=== PATIENT | female | born 1935 | race Caucasian/White ===

== ENCOUNTER 2018-02-13 16:34 | Outpatient (CLI) | payer MEDICARE, OTHER ==
--- NOTE | 2018-02-14 14:33 | Ultrasound Report ---
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 COMPARISON: None. TECHNIQUE: Real-time sonographic vascular imaging was performed by the dust collector operator through the lower extremity utilizing both color-flow and Doppler spectral analysis. Multiple visitor services representative static images were saved for review. FINDINGS: Common Femoral Vein (CFV): Normal. CFV-GSV Junction: Normal. Profunda Femoral Vein (PFV): Normal. Femoral Vein (FV) Prox: Normal. Femoral Vein (FV) Mid: Normal. Femoral Vein (FV) Dist: Normal. Popliteal Vein: Normal. Posterior Tibial Veins: Normal. Peroneal Veins: Normal. Contralateral Side CFV: Normal. Other: No varicose veins were examined or detected by the dust collector operator. IMPRESSION: No evidence for deep venous thrombosis. RADIA
== END 2018-02-13 16:35 | disposition home or self-care (01) ==
LOC: DI 16:34
PROVIDERS: ATTEND Physician Assistant
DX: I83.812 Varicose veins of left lower extremity with pain (principal)

== ENCOUNTER 2020-04-30 08:57 | Outpatient (CLI) | payer MEDICARE, OTHER | END 2020-04-30 08:58 | disposition home or self-care (01) | LOC: DI 08:57 | PROVIDERS: ATTEND Nurse Practitioner Family | DX: R07.9 Chest pain, unspecified (principal); I08.0 Rheumatic disorders of both mitral and aortic valves | CPT/HCPCS: 93306 ==

== ENCOUNTER 2020-05-08 07:46 | Outpatient (CLI) | payer MEDICARE, OTHER ==
--- NOTE | 2020-05-08 11:13 | CARDIAC PROCEDURE NOTE ---
DATE OF SERVICE: 05/08/2020 Physician: Janice Parada MD, [facility] INDICATION: Chest pain. CARDIAC RISK FACTORS 1. Advanced age. 2. Uncontrolled hypertension, is not on treatment. DESCRIPTION OF PROCEDURE: After signing informed consent, the patient underwent a Maik-protocol treadmill stress test. No cardiac imaging was ordered with this test. RESTING HEART RATE: 74. PEAK HEART RATE: 146 (108% predicted maximum heart rate for age). RESTING BLOOD PRESSURE: 159/95. PEAK BLOOD PRESSURE: 170/109. The patient exercised for 2 minutes and 39 seconds on a Maik-protocol treadmill stress test. She achieved a peak heart rate of 146 (108% PMHR) and 4.64 METs. The patient did not develop her "stabbing, flash of chest pain" during exercise. She had mild shortness of breath, but no wheezing. She reported her perceived exertion at 10-12/20 at peak on the Ina scale. During walking the incline, she reported she had more discomfort in her legs, than "any trouble in her chest", and that she "could have gone on". The test was stopped due to achieving heart rate and EKG changes and marked hypertension. Oxygen saturation was 100% on room air and at peak it dropped to 84%. RESTING EKG: Normal sinus rhythm, PAC, marked LVH voltage, diffuse downsloping ST segments with biphasic T waves, which are consistent with strain pattern of LVH. EKG during exercise showed more frequent PACs, occasional PVCs, atrial bigeminy, occasional ventricular couplets. EKG AT PEAK: [address] depressions are seen in the lateral leads. IMPRESSION: 1. Abnormal resting electrocardiogram showing LVH with strain. 2. Increased atrial and ventricular ectopy occurs with exercise. 3. Oxygen desaturation occurs with exercise. 4. Her EKG changes cannot be interpreted as ischemia, since she has a baseline abnormal EKG with ST-T abnormalities. RECOMMENDATIONS: 1. Consider repeating a stress test with cardiac imaging, if indicated, to evaluate for coronary artery disease, since this test was nondiagnostic. 2. Consider a 6-minute walk test, to evaluate for needing home O2. Consider a Pulmonary referral. 3. BP control advised. TD: 05/08/2020 09:12 [facility]
== END 2020-05-08 07:47 | disposition home or self-care (01) ==
LOC: DI 07:46
PROVIDERS: ATTEND Nurse Practitioner Family
DX: R94.39 Abnormal result of other cardiovascular function study (principal); R94.31 Abnormal electrocardiogram [ECG] [EKG]; I10 Essential (primary) hypertension

== ENCOUNTER 2020-11-10 20:05 | Outpatient (CLI) | payer MEDICARE, OTHER | END 2020-11-10 20:06 | disposition EMS.NT | LOC: EMS 20:05 | DX: R55 Syncope and collapse (principal) ==

== ENCOUNTER 2021-12-14 10:46 | Outpatient (CLI) | payer MEDICARE, OTHER | END 2021-12-14 10:47 | disposition short-term general hospital (02) | LOC: EMS 10:46 | DX: R06.09 Other forms of dyspnea (principal); R00.0 Tachycardia, unspecified; R60.0 Localized edema | CPT/HCPCS: A0425; A0427 ==

== ENCOUNTER 2022-01-21 15:09 | Outpatient (CLI) | payer MEDICARE, OTHER ==
--- NOTE | 2022-01-21 16:39 | Ultrasound Report ---
PROCEDURE: Pelvic w/Transvaginal INDICATIONS: ABN CT TECHNIQUE: Real-time scanning was performed of the pelvic organs, with image documentation. Additional endovagi nal scanning was necessary due to incomplete visualization of the adnexal and endometrial structures by transabdominal scanning. COMPARISON: Reported prior outside CT is unavailable for comparison at the time of this of dictation . FINDINGS: Uterus: Uterus is anteverted and normal in size at 5.8 x 3.7 x 2.8 cm. The myometrium is homogeneou s. The endometrium measures 3 mm in combined thickness. Nonspecific vascular prominence is seen nadeem rounding the uterus, which can be seen with pelvic congestion syndrome in the appropriate clinical se tting. Ovaries: The right ovary measures 1.9 x 1.5 x 1.5 cm, with a calculated ovarian volume of 2.3 cc. T he left ovary measures 2.4 x 1.7 x 1.6 cm, with a calculated ovarian volume of 3.2 cc. The ovaries h ave a normal sonographic appearance. Less than 12 follicles can be seen in each ovary. No adnexal m asses are seen. Other: No pathologic free abdominal or pelvic fluid. IMPRESSION: Endometrial thickness is within normal limits for age. No acute sonographic abnormality. Reviewed by: Benigno Phillips MD on 01/21/2022 4:38 PM PST Approved by: Benigno Phillips MD on 01/21/2022 4:38 PM PST Station ID: [id number]
== END 2022-01-21 15:10 | disposition home or self-care (01) ==
LOC: DI 15:09
PROVIDERS: ATTEND Physician Assistant
DX: R93.5 Abnormal findings on diagnostic imaging of other abdominal regions, including retroperitoneum (principal)

== ENCOUNTER 2022-02-10 14:23 | Emergency (ER) | payer MEDICARE, OTHER ==
[2022-02-10 15:06] LABS: BASOPHILS # (AUTO) 0.1 10^3/uL (0.0-0.1); BASOPHILS % (AUTO) 0.7 %; EOSINOPHILS % (AUTO) 0.2 %; HCT - HEMATOCRIT 41.9 % (37.0-47.0); HGB - HEMOGLOBIN 13.2 g/dL (12.0-16.0); LYMPHOCYTES # (AUTO) 0.7 10^3/uL (1.5-3.5); LYMPHOCYTES % (AUTO) 7.2 %; MEAN CORPUSCULAR HEMOGLOBIN 32.3 pg (27.0-31.0); MEAN CORPUSCULAR HGB CONC 31.5 g/dL (32.0-36.0); MEAN CORPUSCULAR VOLUME 102.4 fL (81.0-99.0); MEAN PLATELET VOLUME 10.1 fL (7.9-10.8); MONOCYTES # (AUTO) 1.5 10^3/uL (0.0-1.0); MONOCYTES % (AUTO) 16.2 %; NEUTROPHILS # (AUTO) 6.9 10^3/uL (1.5-6.6); NEUTROPHILS % (AUTO) 75.4 %; PLT - PLATELET COUNT 187 10^3/uL (130-450); RED BLOOD COUNT 4.09 10^6/uL (4.20-5.40); RED CELL DISTRIBUTION WIDTH 13.2 % (12.0-15.0); WHITE BLOOD COUNT 9.2 x10^3/uL (4.8-10.8)
[2022-02-10 15:11] LABS: ALBUMIN 3.6 g/dL (3.2-5.5); ALBUMIN/GLOBULIN RATIO 1.2 (1.0-2.2); BILIRUBIN,TOTAL 1.1 mg/dL (0.2-1.0); CREATININE 0.8 mg/dL (0.4-1.0); TOTAL PROTEIN 6.5 g/dL (6.7-8.2)
--- NOTE | 2022-02-10 15:11 | ED Physician Documentation ---
History of Present Illness - Stated complaint Stated Complaint: WEAKNESS - Chief complaint Chief Complaint: Neuro - Additonal information Additional information: 86-year-old female was brought to the emergency department for evaluation of al tered mental status. This patient does have a history of severe mitral regurg and underwent an outpatient mitral clipping yesterday at [facility]. She reportedly had 3 clips placed. Her friend, caregiver and advocate at the bedside reports that since discharge she has been kind of out of it. And not with it. She states that she will space out for many minutes or even up to 30 minutes. She has not had slurred speech focal facial droop or sudden weakness in her arms or legs. Patient does have a history of atrial fibrillation and had her Eliquis held 3 days prior to the procedure yesterday. She was to resume it today but has not yet. She was also admitted to [facility] in November for treatment of extensive pleural effusion Patient reports that at baseline she has pain with any movement of the left arm due to rotator cuff injury. She is also been quite debilitated and weak after her prolonged hospitalization at [facility]. On presentation however the patient is alert and is able to answer all my questions adequately. Review of Systems Constitutional: denies: Fever, Chills Throat: reports: Reviewed and negative Cardiac: reports: Reviewed and negative Respiratory: reports: Dyspnea GI: denies: Abdominal Pain, Nausea, Vomiting : reports: Reviewed and negative Skin: denies: Rash, Lesions Neurologic: reports: Other ("spacing out"). denies: Generalized weakness, Focal weakness, Numbness, Difficulty speaking, Seizure PD PAST MEDICAL HISTORY - Past Medical History Cardiovascular: None Respiratory: None Endocrine/Autoimmune: HyPOthyroidism GI: None OPEN END SPINNING OPERATOR: None : None HEENT: Glaucoma Psych: None Musculoskeletal: None Derm: None - Past Surgical History Past Surgical History: No Cardiovascular: Other - Present Medications Home Medications: Ambulatory Orders Medication Instructions Recorded Confirmed Cetirizine [ZyrTEC] 10 mg PO DAILY 12/03/14 12/03/14 Levothyroxine [Synthroid] 225 mcg PO QDAC 12/03/14 12/03/14 - Allergies Allergies/Adverse Reactions: Allergies Allergy/AdvReac Type Severity Reaction Status Date / Time No Known Drug Allergies Allergy Verified 02/10/22 14:38 - Social History Does the pt smoke?: No Smoking Status: Never smoker Does the pt drink ETOH?: Yes Does the pt have substance abuse?: No - Immunizations Immunizations are current?: No Immunizations: TDAP >10years/unknown PD ED PE NORMAL - General General: Alert and oriented X 3, No acute distress, Well developed/nourished - HEENT HEENT: Atraumatic, Moist mucous membranes - Neck Neck: Supple, no meningeal sign, No adenopathy - Cardiac Cardiac: RRR, No murmur - Respiratory Respiratory: No respiratory distress, Clear bilaterally - Abdomen Abdomen: Normal bowel sounds, Soft (Mild murmur appreciated.) - Back Back: No CVA TTP, No spinal TTP - Derm Derm: Normal color, Warm and dry, No rash - Extremities Extremities: No deformity, No tenderness to palpate, Normal ROM s pain - Neuro Neuro: Alert and oriented X 3, licensed prosthetist 2-12 intact, No motor deficit, Normal speech Eye Opening: Spontaneous Motor: Obeys Commands Verbal: Oriented GCS Score: 15 Results - Vitals Vitals: Vital Signs - 24 hr 02/10/22 02/10/22 02/10/22 14:30 16:38 18:00 Temperature 36.5 C Heart Rate 89 101 H 89 Respiratory 18 19 18 Rate Blood Pressure 99/66 107/79 108/85 H O2 Saturation 98 98 97 Oxygen O2 Source Room air - EKG (time done) 1514 Rate: Rate (enter#) (80) Rhythm: Atrial fibrillation [place]: Normal Intervals: No: Prolonged QT QRS: Normal Ischemia: Q waves (V5 6), Non specific changes Compare to prior EKG: Unchanged from prior EKG Computer interpretation: Agree with computer - Labs Labs: Laboratory Tests 02/10/22 02/10/22 02/10/22 14:53 14:53 14:53 WBC 9.2 RBC 4.09 L Hgb 13.2 Hct 41.9 MCV 102.4 H MCH 32.3 H MCHC 31.5 L RDW 13.2 Plt Count 187 MPV 10.1 Neut # (Auto) 6.9 H Lymph # (Auto) 0.7 L [place] # (Auto) 1.5 H Eos # (Auto) 0.0 Baso # (Auto) 0.1 Absolute Nucleated RBC 0.00 Nucleated RBC % 0.0 Sodium 138 Potassium 4.3 Chloride 101 Carbon Dioxide 27 Anion Gap 10.0 BUN 22 H Creatinine 0.8 Estimated GFR (MDRD) 68 L Glucose 128 H Calcium 9.3 Total Bilirubin 1.1 H AST 21 ALT 14 Alkaline Phosphatase 68 Total Protein 6.5 L Albumin 3.6 Globulin 2.9 Albumin/Globulin Ratio 1.2 Lipase 22 TSH 0.40 Urine Color Urine Clarity Urine pH Ur Specific [place] Urine Protein Urine Glucose (UA) Urine Ketones Urine Occult Blood Urine Nitrite Urine Bilirubin Urine Urobilinogen Ur Leukocyte Esterase Urine RBC Urine WBC Ur Squamous Epith Cells Urine Bacteria Ur Microscopic Review Urine Culture Comments 02/10/22 17:41 WBC RBC Hgb Hct MCV MCH MCHC RDW Plt Count MPV Neut # (Auto) Lymph # (Auto) [place] # (Auto) Eos # (Auto) Baso # (Auto) Absolute Nucleated RBC Nucleated RBC % Sodium Potassium Chloride Carbon Dioxide Anion Gap BUN Creatinine Estimated GFR (MDRD) Glucose Calcium Total Bilirubin AST ALT Alkaline Phosphatase Total Protein Albumin Globulin Albumin/Globulin Ratio Lipase TSH Urine Color YELLOW Urine Clarity HAZY Urine pH 5.5 Ur Specific [place] 1.010 Urine Protein 30 H Urine Glucose (UA) NEGATIVE Urine Ketones NEGATIVE Urine Occult Blood NEGATIVE Urine Nitrite NEGATIVE Urine Bilirubin NEGATIVE Urine Urobilinogen 0.2 (NORMAL) Ur Leukocyte Esterase NEGATIVE Urine RBC 6-10 H Urine WBC 0-3 Ur Squamous Epith Cells FEW Squamous Urine Bacteria Rare Ur Microscopic Review INDICATED Urine Culture Comments NOT INDICATED - Rads (name of study) angio head Radiology: Final report received (No high-grade stenosis in cervical carotid arteries or vertebral arteries bilaterally. Bilateral pleural effusions, moderate on the right and small to moderate on the left. Bilateral interstitial infiltrates suggestive of pulmonary edema. Scoliosis and degenerative changes in cervical spine. ) PD MEDICAL DECISION MAKING - ED course Complexity details: reviewed results, re-evaluated patient, considered differential, d/w patient ED course: 86-year-old female was brought to the emergency department for evaluation of episodes in which she is simply spacing out. She underwent mitral valve clipping yesterday at [facility]. This was an outpatient procedure. Her friend, caregiver as well as advocate at the bedside reports that since discharge from the hospital she has noticed that the patient seems more lethargic and simply spaces out. At no point has she had slurred speech or facial droop. However she did have to hold anticoagulation for 3 days in anticipation of the procedure and they are concerned that these episodes could be related to strokes. This patient had a prolonged hospitalization in November [address] [facility] where she was found to be in heart failure secondary to A. fib. At that time she also had extensive pleural effusions that required drainage. She does have rate controlled atrial fibrillation here in the emergency department. Historically she is on Eliquis however again it had been held for the mitral clipping yesterday. 9 on presentation to the ER the patient is alert and very well-appearing. She has very fluid speech. She is cognizant of all of the events over the last 24 to 48 hours and has no lapses in memory. She has a nonfocal neuro exam. Her NIHSS is 0. She does have some limited movement in her upper arms owing to rotator cuff injury but again this is not a new finding. I did obtain a CBC and electrolytes today in the emergency department that were without acute worrisome findings. However given the concern for possible stroke etiology we did obtain CT angios of the head and neck. Showed no acute stenosis aneurysm or dilation. Incidental finding is made of bilateral pleural effusions which patient has previously been known to have. Here in the emergency department she is without hypoxia or respiratory distress. While here in the emergency department the patient has been on the ice scraper. We note rate controlled atrial fibrillation. She is had no tachyarrhythmia. She has been normotensive and without the episodes of "spacing out" that were described her by friend at the bedside GivenAt this time I suspect that the patient is simply deconditioned lengthy hospitalizations as well as her recent procedure requiring anesthesia/sedation. No acute findings are found today and at this time she is stable for discharge home to continue follow-up with her licensed direct entry midwife as well as her primary care provider. I did discuss emergent return precautions for worrisome symptoms. Departure - Departure Disposition: 01 Home, Self Care Clinical Impression: History of mitral valve disorder, Anticoagulated, Spell of abnormal behavior, Bilateral pleural effusion Condition: Stable Record reviewed to determine appropriate education?: Yes Comments: You are seen in the emergency department today because you have been spacing out since your mitral valve clipping procedure yesterday. As we discussed at the bedside you did not have any signs to suggest a stroke on your exam. We did obtain CBC and electrolytes that did not show any worrisome findings. However w ith your concern of stroke and holding of the anticoagulation anticipation of your surgery we did do CT angiograms of your head and neck. They do show good blood flow through the vessels in your head and neck without bleeding or aneurysms. Incidental findings are made of the bilateral pleural effusions. This is a collection of fluid overlying your lung and it is the reason you were admitted to [facility] in November. These likely stem from your heart failure associated with your mitral valve disease. I would anticipate that this gets better now that the mitral valve clipping has been completed. I would like you to follow very closely with Dr. Lopez your licensed direct entry midwife. You can continue to take your usual medications including your anticoagulations. Return immediately to the ER if you develop slurred speech, have facial droop, sudden weakness in your arms or legs. NIHSS - Time Time: 15:10 - Level of Consciousness Level of consciousness: (0) Alert, Keenly responsive LOC Questions: (0) Answers both Q's correct LOC Commands: (0) Performs both correctly - Gaze Best Gaze: (0) Normal - Visual Visual: (0) No loss - Facial Palsy Facial Palsy: (0) Normal, symmetrical movement - Motor Arms (both separate) Motor Arm (right): (0) No drift Motor Arm (left): (0) No drift - Motor Legs (both separate) Motor Leg (right): (0) No drift Motor Leg (left): (0) No drift - Limb Ataxia Limb Ataxia: (0) Absent - Sensory Sensory: (0) Normal - Best Language Best Language: (0) No aphasia - Dysarthria Dysarthria: (0) Normal - Extinction and Inattention (formally neg Extinction and inattention: (0) No abnormality - Total Score/Results Total Score/Result: 0
[2022-02-10] MEDS ORDERED: iohexoL-300 100 ML VIAL ONE ×2 (15:15→16:49)
[2022-02-10 15:18] LABS: CALCIUM 9.3 mg/dL (8.5-10.3); POTASSIUM 4.3 mmol/L (3.5-5.0)
[2022-02-10] MEDS ORDERED: SODIUM CHLORIDE 0.9% 500 ML IV STA ×2 (16:08→17:07)
[2022-02-10 17:53] LABS: BILIRUBIN,URINE NEGATIVE (NEGATIVE); GLUCOSE, URINE (UA) NEGATIVE (NEGATIVE); KETONES,URINE (UA) NEGATIVE (NEGATIVE); LEUKOCYTE ESTERASE, URINE NEGATIVE (NEGATIVE); NITRITE,URINE NEGATIVE (NEGATIVE); OCCULT BLOOD,URINE NEGATIVE (NEGATIVE); PH,URINE 5.5 PH (5.0-7.5); PROTEIN,URINE 30 mg/dL (NEGATIVE); UROBILINOGEN,URINE 0.2 (NORMAL) E.U./dL (NORMAL)
[2022-02-10] MEDS ORDERED: iohexoL-300 100 ML VIAL IVP ONE (17:56)
[2022-02-10 18:04] VITALS: BP 108/85
[2022-02-10 18:04] LABS: CLARITY,URINE HAZY (CLEAR)
[2022-02-10 18:05] LABS: BACTERIA,URINE Rare /HPF (None Seen); SQUAMOUS EPITHELIAL CELL,UR FEW Squamous (<= Few); WBC,URINE 0-3 /HPF (0-5)
--- NOTE | 2022-02-10 18:47 | CT Report ---
PROCEDURE: ANGIO HEAD W/WO INDICATIONS: Mitral clipping; 02/09; "spacing out" CONTRAST: 160ml OMnipaque 300 TECHNIQUE: Precontrast 4.5 mm thick angled axial sections acquired from the foramen magnum to the vertex. Afte r the administration of intravenous contrast, 1 mm thick sections acquired through the [place] of Will is. Postcontrast 4.5 mm thick sections then re-acquired from the foramen magnum to the vertex. 3-di mensional ljxttuj-gqqzpidmy-rcdshqvddg (MIP) and/or volume rendering reformats were acquired of the c entral intracranial vasculature. For radiation dose reduction, the following was used: automated ex posure control, adjustment of mA and/or kV according to patient size. COMPARISON: CT head angiogram, 02/10/2022. FINDINGS: Image quality: Excellent. Anterior circulation: Intracranial internal carotid arteries are normal in size and flow. The flow within the paired anterior cerebral arteries is normal and symmetric. The flow within the middle cer ebral arteries is normal and symmetric. The anterior communicating artery is seen. No aneurysms are seen. Posterior circulation: Visualized portions of the vertebral arteries demonstrate normal caliber, and join to form a normal appearing basilar artery. Flow within the posterior cerebral arteries is norm al and symmetric. No aneurysms are seen. CSF spaces: Ventricles are normal in size and shape. Basal cisterns are patent. No extra-axial flu id collections. Brain: No midline shift. No intracranial bleeds or masses. Malik-white matter interface appears int act. Skull and face: Calvarium and facial bones appear intact, without suspicious lesions. Sinuses: Visualized sinuses and mastoids are clear. IMPRESSION: 1. No high-grade stenosis in cervical carotid arteries or vertebral arteries bilaterally. 2. Bilateral pleural effusions, moderate on the right and [id number] on the left. 3. Bilateral interstitial infiltrates suggesting pulmonary edema. 4. Scoliosis and degenerative changes in cervical spine. 5. Osteopenia. Reviewed by: Lawanda Harden MD on 02/10/2022 6:46 PM PST Approved by: Lawanda Harden MD on 02/10/2022 6:46 PM PST Station ID: [id number]
--- NOTE | 2022-02-10 18:57 | CT Report ---
PROCEDURE: ANGIO NECK W INDICATIONS: mitral clipping 02/09; "spacing out" CONTRAST: 160ml OMnipaque 300 TECHNIQUE: After the administration of intravenous contrast, 1.5 mm axial sections acquired from the aortic arch to the [place] of Min. Coronal 3-D maximum intensity projection (MIP) and/or volume rendering ref ormats were then performed. For radiation dose reduction, the following was used: automated exposur e control, adjustment of mA and/or kV according to patient size. COMPARISON: CT head angiogram. FINDINGS: Image quality: Excellent. Carotid system: The great vessels demonstrate a conventional anatomy as they arise from the aortic a rc. The origins of the common carotid arteries appear patent. The common carotid arteries demonstr ate normal calibers and courses. The bifurcation regions appear patent bilaterally. There is mild at herosclerotic calcifications at carotid bifurcations bilaterally. The internal carotid arteries demon strate normal caliber and course. Moderate calcification of the cavernous segment of the distal inte rnal carotid arteries bilaterally. No high-grade stenosis or occlusion. Posterior circulation: The origins of the vertebral arteries appear patent. The more superior porti ons of the vertebral arteries demonstrate normal course and caliber. They join to form a normal appe aring basilar artery. Soft tissues: Visualized neck soft tissues demonstrate no suspicious abnormalities. The thyroid is normal in size and there are no incidental findings. Bones: No suspicious bony lesions. Visualized cervical spine appears normally aligned. IMPRESSION: 1. No high-grade stenosis in cervical carotid arteries or vertebral arteries bilaterally. 2. Bilateral pleural effusions, moderate on the right and [id number] on the left. 3. Bilateral interstitial infiltrates suggesting pulmonary edema. 4. Scoliosis and degenerative changes in cervical spine. 5. Osteopenia. The estimate of stenosis included in the report of the imaging study was calculated using the NASCET method CLINICAL RECOMMENDATION STATEMENTS: In patients <35 years with an ITN detected on CT, MRI, or extrathyroidal ultrasound, the Committee re commends further evaluation with dedicated thyroid ultrasound if the nodule is "e1 cm and has no susp icious imaging features, and if the patient has normal life expectancy. In patients "e35 years with an ITN detected on CT, MRI, or extrathyroidal ultrasound, the Committee r ecommends further evaluation with dedicated thyroid ultrasound if the nodule is "e1.5 cm and has no s uspicious imaging features, and if the patient has normal life expectancy. (ACR, 2014) Reviewed by: Lawanda Harden MD on 02/10/2022 6:56 PM PST Approved by: Lawanda Harden MD on 02/10/2022 6:56 PM PST Station ID: [id number]
== END 2022-02-10 19:08 | disposition home or self-care (01) ==
LOC: ED 14:23
DX: R41.82 Altered mental status, unspecified (principal); J90 Pleural effusion, not elsewhere classified; I48.91 Unspecified atrial fibrillation; Z79.01 Long term (current) use of anticoagulants; Z86.79 Personal history of other diseases of the circulatory system
CPT/HCPCS: 36415; 70496; 70498; 80053; 81001; 83690; 84443; 85025; 93005; 96360; 96361; 99284; Q9967; 81003; 87086

== ENCOUNTER 2023-07-20 11:11 | Outpatient (CLI) | payer MEDICARE, OTHER | END 2023-07-20 23:59 | disposition critical access hospital (66) | LOC: EMS 11:11 | DX: M54.50 Low back pain, unspecified (principal); X58.XXXA Exposure to other specified factors, initial encounter; Y93.H2 Activity, gardening and landscaping | CPT/HCPCS: A0425; A0429 ==

== ENCOUNTER 2023-07-25 12:31 | Inpatient (IN) | payer MEDICARE, OTHER ==
[2023-07-25 13:06] LABS: BASOPHILS # (AUTO) 0.1 10^3/uL (0.0-0.1); EOSINOPHILS # (AUTO) 0.2 10^3/uL (0.0-0.7); EOSINOPHILS % (AUTO) 3.5 %; HCT - HEMATOCRIT 38.7 % (37.0-47.0); HGB - HEMOGLOBIN 12.6 g/dL (12.0-16.0); LYMPHOCYTES # (AUTO) 0.7 10^3/uL (1.5-3.5); LYMPHOCYTES % (AUTO) 11.5 %; MEAN CORPUSCULAR HEMOGLOBIN 33.4 pg (27.0-31.0); MEAN CORPUSCULAR HGB CONC 32.6 g/dL (32.0-36.0); MEAN CORPUSCULAR VOLUME 102.7 fL (81.0-99.0); MEAN PLATELET VOLUME 9.3 fL (7.9-10.8); MONOCYTES # (AUTO) 0.6 10^3/uL (0.0-1.0); MONOCYTES % (AUTO) 10.1 %; NEUTROPHILS # (AUTO) 4.2 10^3/uL (1.5-6.6); NEUTROPHILS % (AUTO) 73.7 %; PLT - PLATELET COUNT 219 10^3/uL (130-450); RED BLOOD COUNT 3.77 10^6/uL (4.20-5.40); RED CELL DISTRIBUTION WIDTH 12.6 % (12.0-15.0); WHITE BLOOD COUNT 5.7 x10^3/uL (4.8-10.8)
[2023-07-25 13:20] LABS: ALBUMIN 3.9 g/dL (3.2-5.5); ALBUMIN/GLOBULIN RATIO 1.4 (1.0-2.2); ALKALINE PHOSPHATASE 81 IU/L (42-121); ALT ALANINE AMINOTRANSFERASE 13 IU/L (10-60); AST ASPARTATE AMINOTRANSFERASE 18 IU/L (10-42); BILIRUBIN,TOTAL 0.7 mg/dL (0.2-1.0); BUN - BLOOD UREA NITROGEN 19 mg/dL (6-20); CALCIUM 9.6 mg/dL (8.5-10.3); CARBON DIOXIDE - CO2 27 mmol/L (21-32); CHLORIDE 99 mmol/L (101-111); CREATININE 0.8 mg/dL (0.6-1.3); GFR - MDRD 68 (>89); GLUCOSE 111 mg/dL (74-104); POTASSIUM 3.9 mmol/L (3.5-4.5); SODIUM 132 mmol/L (135-145); TOTAL PROTEIN 6.7 g/dL (6.4-8.9)
[2023-07-25 13:22] LABS: LIPASE < 10 U/L (11-82)
[2023-07-25] MEDS ORDERED: iohexoL-300 100 ML VIAL ONE (17:20)
[2023-07-25] MEDS: ONDANSETRON 4 MG/2 ML VIAL IVP STA (17:50)
[2023-07-25] MEDS: HYDROmorphone 0.5 MG/0.5 ML SYRINGE IVP STA ×2 (17:50→18:26)
[2023-07-25] MEDS: iohexoL-300 100 ML VIAL IVP ONE (18:10)
--- NOTE | 2023-07-25 18:15 | ED Physician Documentation ---
History of Present Illness - Stated complaint Stated Complaint: BACK PX,NAUSEA - Chief complaint Chief Complaint: Abd Pain - Additonal information Additional information: 87-year-old female with history of osteopenia, hypothyroidism presents emergency department for persistent ongoing lower back pain. Patient was here about a week ago for this lower back pain at the same spot. She at that time had no trauma no recent falls or injuries to her back said that she had overdone in the garden but did not think that this could be contributing to her back pain as she has had extensive gardening days in the past. Given her advanced age she was not given any opioids she was sent home with a prescription of muscle relaxers and told how to manage her back pain symptoms at home. I held off on doing any imaging given that she had no trauma or falls. She presents back to the emergency department today with ongoing if not worsening lower back pain to the point where she is having a hard time ambulating and also having worsening constipation with mild nausea. Patient's daughter is at bedside who is a wonderful historian and able to contribute and says that her mother has had a hard time ambulating she is normally very tough woman and her daughter is having a hard time seeing her this decondition. Patient has not had a bowel movement since prior to this back injury and has still yet to have a bowel movement and is worried also about constipation. No new urinary or bowel incontinence no fevers or chills. PD PAST MEDICAL HISTORY - Past Medical History Cardiovascular: None Respiratory: None Endocrine/Autoimmune: HyPOthyroidism GI: None FAMILY SERVICE CASEWORKER: None : None HEENT: Glaucoma Psych: None Musculoskeletal: None Derm: None - Past Surgical History Past Surgical History: No Cardiovascular: Other - Present Medications Home Medications: Ambulatory Orders Medication Instructions Recorded Confirmed Apixaban [Eliquis] 2.5 mg PO BID 07/20/23 07/25/23 Bimatoprost 0.01% Ophth Dops 1 drops EACHEYE BID 07/20/23 07/25/23 [Lumigan 0.01% Ophth Drops] Brimonidine 0.2% Ophth Drops 1 drops OP BID 07/20/23 07/25/23 [Alphagan P 0.2% Ophth Drops] Cyanocobalamin (Vitamin B-12) 1,000 mcg PO DAILY 07/20/23 07/25/23 [Vitamin B12] Cyclobenzaprine [Flexeril] 10 mg PO TID PRN 6 Days #20 tablet 07/20/23 07/25/23 Dorzolamide HCl/Pf [Dorzolamide 2% 1 drops OP TID 07/20/23 07/25/23 Eye Drop] Fluticasone/Salmeterol [Advair Hfa 2 puffs INH DAILY 07/20/23 07/25/23 115-21 Mcg Inhaler] Levocetirizine Dihydrochloride 5 mg PO DAILY 07/20/23 07/25/23 [Xyzal] Levothyroxine Sodium [Synthroid] 200 mcg PO DAILY 07/20/23 07/25/23 Magnesium Oxide [Magnesium] 200 mg PO DAILY 07/20/23 07/25/23 Metoprolol Tartrate [Lopressor] 25 mg PO BID 07/20/23 07/25/23 Montelukast [Singulair] 10 mg PO QPM 07/20/23 07/25/23 Multivitamin/Iron/Folic Acid 1 each PO DAILY 07/20/23 07/25/23 [Centrum Women Tablet] Ubidecarenone [Co Q-10] 25 mg PO DAILY 07/20/23 07/25/23 - Allergies Allergies/Adverse Reactions: Allergies Allergy/AdvReac Type Severity Reaction Status Date / Time No Known Drug Allergies Allergy Verified 07/25/23 12:45 - Social History Does the pt smoke?: No Smoking Status: Never smoker Does the pt drink ETOH?: Yes Does the pt have substance abuse?: No - Immunizations Immunizations are current?: No Immunizations: TDAP >10years/unknown PD ED PE NORMAL - Vitals Vital signs reviewed: Yes - General General: Alert and oriented X 3, No acute distress, Well developed/nourished - HEENT HEENT: Atraumatic, PERRL - Cardiac Cardiac: RRR, No murmur - Respiratory Respiratory: No respiratory distress, Clear bilaterally - Abdomen Abdomen: Normal bowel sounds, Soft, Non tender, Non distended, No organomegaly - Neuro Neuro: Alert and oriented X 3, bonding supervisor 2-12 intact, No motor deficit, No sensory deficit, Normal speech - Psych Psych: Normal mood, Normal affect PD ED PE EXPANDED - Back Back: Vertebral tenderness (mid-vertebrae tenderness), Soft tissue tenderness, Limited ROM Results - Vitals Vitals: Vital Signs - 24 hr 07/25/23 07/25/23 07/25/23 12:42 18:44 18:45 Temperature 36.7 C Heart Rate 97 84 Respiratory 18 18 Rate Blood Pressure 121/81 H 125/90 H O2 Saturation 100 77 L 97 If not protocol 3 : Oxygen Flow, liters/minute 07/25/23 20:00 Temperature Heart Rate 76 Respiratory 18 Rate Blood Pressure 112/86 H O2 Saturation 99 If not protocol : Oxygen Flow, liters/minute Oxygen O2 Source Nasal cannula - Labs Labs: Laboratory Tests 07/25/23 07/25/23 07/25/23 13:01 13:01 13:01 WBC 5.7 RBC 3.77 L Hgb 12.6 Hct 38.7 MCV 102.7 H MCH 33.4 H MCHC 32.6 RDW 12.6 Plt Count 219 MPV 9.3 Neut # (Auto) 4.2 Lymph # (Auto) 0.7 L [place] # (Auto) 0.6 Eos # (Auto) 0.2 Baso # (Auto) 0.1 Absolute Nucleated RBC 0.00 Nucleated RBC % 0.0 Sodium 132 L Potassium 3.9 Chloride 99 L Carbon Dioxide 27 Anion Gap 6.0 BUN 19 Creatinine 0.8 Estimated GFR (MDRD) 68 L Glucose 111 H Calcium 9.6 Magnesium 1.9 Total Bilirubin 0.7 AST 18 ALT 13 Alkaline Phosphatase 81 Total Protein 6.7 Albumin 3.9 Globulin 2.8 Albumin/Globulin Ratio 1.4 Lipase < 10 L - Rads (name of study) ct and pelvis Relevant Findings:: Final report received, EMP independent interpretation of test, Other (Moderate L1 vertebrae compression fracture with 5 mm retropulsion of osseous fragment resulting in mild to moderate narrowing of the bony spinal canal. Moderate to large volume of stool throughout colon and marked cardiomegaly.) PD Medical Decision Making - ED course ED course: 87-year-old female presents emergency department for ongoing worsening lower back pain. Patient is here with her daughter her daughter says that she has been having a hard time getting out of bed because of the severity of the pain and that muscle relaxers and [id number] medications are not helping. She has had no loss of bowel or bladder on physical exam she has no signs or symptoms of cauda equina, no saddle anesthesia. CT scan was complete for further evaluation and patient was found to have very large stool burden throughout colon as well as significant constipation. She was also found to have a compression fracture at L1. There was a moderate L1 vertebral body compression fracture with approximately 5 mm retropulsion of osseous fragments resulting in mild to moderate narrowing of the bony spinal canal. Because patient is having a very hard time controlling her pain at home I have reached out to hospitalist for hospital admission to help patient manage her pain. Per his request he asked that I reach out to a neurosurgeon to see if patient would benefit from a kyphoplasty arthroplasty for compression fracture. I reach out to a neurosurgeon and he said that this type of compression fracture of the vertebrae is actually contraindicated for kyphoplasty or arthroplasty is not something that was done emergently while patient is hospitalized and is not saying that the patient would benefit from. He recommended a TLSO brace and did think that this would be an appropriate admission for pain control. I then reach out to the hospitalist again to inform him of these neurosurg recommendations and he has graciously agreed to admit the patient for observation and pain control given that patient has not been able to manage her pain at home. She was also given a large soapsuds enema to help with fecal impaction and was able to have large bowel movement here in the emergency department. Patient and patient's daughter agreeable for hospital admission to help with managing her pain and rehabilitation Departure - Departure Disposition: [facility] Clinical Impression: Compression fracture of L1 vertebra, Constipation Discharge Date/Time: 07/25/23 22:02
--- NOTE | 2023-07-25 18:54 | CT Report ---
PROCEDURE: Abdomen/Pelvis W INDICATIONS: nausea, vomiting, constipation CONTRAST: 100ml [id number] TECHNIQUE: After the administration of intravenous contrast, a CT scan of the abdomen and pelvis was performed. Images were recorded and evaluated at appropriate window settings. Reformats: coronal and sagittal. F or radiation dose reduction, the following was used: automated exposure control, adjustment of mA and /or kV according to patient size. COMPARISON: None. FINDINGS: Image quality: Diagnostic. Lower chest: Heart is markedly enlarged. Prior mitral and tricuspid valve procedures. Small bilateral pleural effusions with atelectasis of the lung bases. Liver: No solid mass. Gallbladder: No radiopaque stones or wall thickening. Biliary tree: No intrahepatic or extrahepatic dilation, accounting for age. Spleen: No splenomegaly. Pancreas: No pancreatic ductal dilation. Adrenals: No adrenal nodule. Kidneys and ureters: No hydronephrosis. No renal cystic lesion which requires follow up. No solid mas s. Simple cyst is seen in the upper pole of the left kidney. Stomach, bowel and peritoneum: No gastric or small bowel dilation. No abnormal wall thickening. No pa thologic free fluid. Moderate colonic stool. Multiple diverticula are seen in the sigmoid colon. Lymph nodes: No central or retroperitoneal adenopathy. Vessels: No infrarenal aortic aneurysm. Patent portal vein. PELVIS Reproductive organs: Unremarkable. Bladder: No abnormal wall thickening, accounting for underdistention. Pelvic lymph nodes: No pelvic adenopathy by size criteria. Bones: Bones are osteopenic. There is a moderate compression fracture of L1 with approximately 5 mm r etropulsion of osseous fragments resulting in mild to moderate narrowing of the bony spinal canal at the T12-L1 level. Other: No significant ventral or inguinal hernia. IMPRESSION: 1.Moderate L1 vertebral body compression fracture with approximately 5 mm retropulsion of osseous fra gments resulting in mild to moderate narrowing of the bony spinal canal. MRI could be performed for f urther evaluation of the thecal sac and cord if indicated clinically. 2.Moderate to large volume of stool throughout the colon. Correlate for constipation. 3.Marked cardiomegaly. Reviewed by: Benigno Phillips MD on 07/25/2023 6:53 PM PDT Approved by: Benigno Phillips MD on 07/25/2023 6:53 PM PDT Station ID: [id number]
[2023-07-25] MEDS: SOAP SUDS ENEMA 1 EACH RC ONE (20:03)
[2023-07-25] MEDS ORDERED: ONDANSETRON ODT 4 MG TABLET TL PRN (20:55)
--- NOTE | 2023-07-25 20:55 | HISTORY & PHYSICAL EXAMINATION ---
Chief Complaint - Chief Complaint Chief Complaint: back pain, constipation History of Present Illness - History of Present Illness HPI Comment/Other: pt with progressively worsening back pain x 1 wk without any reported trauma. pt states she had come to ER a few days and was diagnosed with muscle sprain/spasm, and discharged with flexeril, but has not had relief. denies any shooting pains or numbness, tingling, leg weakness, or involuntary loss or urine or bowel. no fevers, chills, chest pain, sob. lives an active lifestyle. denies falls. no ams. no confusion. states she is able to stand and bear weight, but it makes her pain much worse. she has had decreased bm and po intake as well. History - Past Medical History Cardiovascular: reports: None Respiratory: reports: None Endocrine/Autoimmune: reports: HyPOthyroidism GI: reports: None EQUIPMENT ASSOCIATE: reports: None : reports: None HEENT: reports: Glaucoma Psych: reports: None Musculoskeletal: reports: None Derm: reports: None MRSA Hx?: No - Past Surgical History Cardiovascular: reports: Other Meds/Allgy - Home Medications Home Medications: Ambulatory Orders Medication Instructions Recorded Confirmed Apixaban [Eliquis] 2.5 mg PO BID 07/20/23 07/25/23 Bimatoprost 0.01% Ophth Dops 1 drops EACHEYE BID 07/20/23 07/25/23 [Lumigan 0.01% Ophth Drops] Brimonidine 0.2% Ophth Drops 1 drops OP BID 07/20/23 07/25/23 [Alphagan P 0.2% Ophth Drops] Cyanocobalamin (Vitamin B-12) 1,000 mcg PO DAILY 07/20/23 07/25/23 [Vitamin B12] Cyclobenzaprine [Flexeril] 10 mg PO TID PRN 6 Days #20 tablet 07/20/23 07/25/23 Dorzolamide HCl/Pf [Dorzolamide 2% 1 drops OP TID 07/20/23 07/25/23 Eye Drop] Fluticasone/Salmeterol [Advair Hfa 2 puffs INH DAILY 07/20/23 07/25/23 115-21 Mcg Inhaler] Levocetirizine Dihydrochloride 5 mg PO DAILY 07/20/23 07/25/23 [Xyzal] Levothyroxine Sodium [Synthroid] 200 mcg PO DAILY 07/20/23 07/25/23 Magnesium Oxide [Magnesium] 200 mg PO DAILY 07/20/23 07/25/23 Metoprolol Tartrate [Lopressor] 25 mg PO BID 07/20/23 07/25/23 Montelukast [Singulair] 10 mg PO QPM 07/20/23 07/25/23 Multivitamin/Iron/Folic Acid 1 each PO DAILY 07/20/23 07/25/23 [Centrum Women Tablet] Ubidecarenone [Co Q-10] 25 mg PO DAILY 07/20/23 07/25/23 - Allergies Allergies/Adverse Reactions: Allergies Allergy/AdvReac Type Severity Reaction Status Date / Time No Known Drug Allergies Allergy Verified 07/25/23 12:45 Review of Systems - Other Findings Other Findings: 14 pt review done with positives per hpi; all others reviewed as negative Exam - Vital Signs Vital Signs: Vital Signs x48h Pulse Resp BP Pulse Ox O2 Flow Rate 07/25/23 18:45 84 18 125/90 H 97 3 07/25/23 18:44 77 L - Physical Exam Comments/Other: gen - aaox3, in pain and uncomfortable but cooperative with questions heent - eomi, nc/at heart - per ed charting abd - per ed charting heart - per ed charting lungs - per ed charting msk - severe back pain, reduced mobility d/t pain Conclusion/Plan - Lab Results Fish Bones: 07/25/23 21:15 07/25/23 21:15 - Other Other Results/Comments: pt with - - L1 compression fracture atraumatic no neuro deficits no interventions needed per ED conversation with neurosurgery and ortho PT eval and treat, pain control, may need brace - severe back pain d/t above pain control, pt eval and treat - constipation colace prn miralax pt received soap suds enema in ER - chronic a-fib rate controlled continue eliquis and bb monitor electrolytes f/u labs, electrolytes further orders per clinical course
[2023-07-25 21:19] LABS: BASOPHILS # (AUTO) 0.1 10^3/uL (0.0-0.1); BASOPHILS % (AUTO) 1.1 %; EOSINOPHILS # (AUTO) 0.2 10^3/uL (0.0-0.7); EOSINOPHILS % (AUTO) 3.7 %; HCT - HEMATOCRIT 38.9 % (37.0-47.0); HGB - HEMOGLOBIN 12.7 g/dL (12.0-16.0); LYMPHOCYTES # (AUTO) 0.8 10^3/uL (1.5-3.5); LYMPHOCYTES % (AUTO) 12.4 %; MEAN CORPUSCULAR HEMOGLOBIN 33.4 pg (27.0-31.0); MEAN CORPUSCULAR HGB CONC 32.6 g/dL (32.0-36.0); MEAN CORPUSCULAR VOLUME 102.4 fL (81.0-99.0); MEAN PLATELET VOLUME 9.4 fL (7.9-10.8); MONOCYTES # (AUTO) 0.6 10^3/uL (0.0-1.0); MONOCYTES % (AUTO) 10.4 %; NEUTROPHILS # (AUTO) 4.4 10^3/uL (1.5-6.6); NEUTROPHILS % (AUTO) 72.2 %; PLT - PLATELET COUNT 215 10^3/uL (130-450); RED CELL DISTRIBUTION WIDTH 12.9 % (12.0-15.0); WHITE BLOOD COUNT 6.1 x10^3/uL (4.8-10.8)
[2023-07-25 21:32] LABS: CHOL/HDL RATIO 3.4 (<4.4); CHOLESTEROL 158 mg/dL; HDL CHOLESTEROL 47 mg/dL; LDL CHOLESTEROL,CALCULATED 94 mg/dL; TRIGLYCERIDES 85 mg/dL (48-352); VLDL CHOLESTEROL 17 mg/dL
[2023-07-25 21:33] LABS: ALBUMIN 3.8 g/dL (3.2-5.5); ALBUMIN/GLOBULIN RATIO 1.4 (1.0-2.2); BILIRUBIN,TOTAL 0.6 mg/dL (0.2-1.0); CALCIUM 9.4 mg/dL (8.5-10.3); CREATININE 0.7 mg/dL (0.6-1.3); POTASSIUM 3.9 mmol/L (3.5-4.5); TOTAL PROTEIN 6.5 g/dL (6.4-8.9)
[2023-07-25 21:39] LABS: ESTIMATED AVERAGE GLUCOSE 108 mg/dL (70-100); HEMOGLOBIN A1c% 5.4 % (4.27-6.07)
[2023-07-25] MEDS: METOPROLOL TARTRATE 25 MG TABLET PO SCH (22:10)
[2023-07-25] MEDS: MORPHINE 2 MG/ML CARPUJECT IVP PRN (22:10)
[2023-07-25] MEDS: APIXABAN 2.5 MG TABLET PO SCH (22:11)
[2023-07-25] MEDS: LACTATED RINGERS 1,000 ML IV SCH (22:11)
[2023-07-25 22:12] LABS: THYROID STIMULATING HORMONE 9.76 uIU/mL (0.34-5.60)
[2023-07-25] MEDS: BRIMONIDINE 0.2% OPHTH DROPS 5 ML EACHEYE SCH (22:44)
[2023-07-25] MEDS: DORZOLAMIDE 2% OPHTH DROPS EACHEYE SCH (22:45)
[2023-07-25] MEDS: oxyCODONE 5 MG TABLET PO PRN (22:46)
[2023-07-26] MEDS: IBUPROFEN 600 MG TABLET PO PRN (00:37)
[2023-07-26] MEDS: SODIUM CHLORIDE FLUSH 0.9% 10 ML SYRINGE IVP SCH (00:42)
[2023-07-26] MEDS: CYCLOBENZAPRINE 10 MG TABLET PO PRN (00:59)
[2023-07-26 05:12] LABS: BASOPHILS # (AUTO) 0.1 10^3/uL (0.0-0.1); BASOPHILS % (AUTO) 0.9 %; EOSINOPHILS # (AUTO) 0.3 10^3/uL (0.0-0.7); EOSINOPHILS % (AUTO) 4.2 %; HCT - HEMATOCRIT 34.3 % (37.0-47.0); HGB - HEMOGLOBIN 11.3 g/dL (12.0-16.0); LYMPHOCYTES # (AUTO) 0.7 10^3/uL (1.5-3.5); LYMPHOCYTES % (AUTO) 10.6 %; MEAN CORPUSCULAR HEMOGLOBIN 33.7 pg (27.0-31.0); MEAN CORPUSCULAR HGB CONC 32.9 g/dL (32.0-36.0); MEAN CORPUSCULAR VOLUME 102.4 fL (81.0-99.0); MEAN PLATELET VOLUME 9.4 fL (7.9-10.8); MONOCYTES # (AUTO) 0.8 10^3/uL (0.0-1.0); MONOCYTES % (AUTO) 12.5 %; NEUTROPHILS # (AUTO) 4.6 10^3/uL (1.5-6.6); NEUTROPHILS % (AUTO) 71.5 %; PLT - PLATELET COUNT 186 10^3/uL (130-450); RED BLOOD COUNT 3.35 10^6/uL (4.20-5.40); WHITE BLOOD COUNT 6.4 x10^3/uL (4.8-10.8)
[2023-07-26] MEDS: ACETAMINOPHEN 325 MG TABLET PO PRN (05:19)
[2023-07-26 05:30] LABS: ALBUMIN 3.3 g/dL (3.2-5.5); ALBUMIN/GLOBULIN RATIO 1.4 (1.0-2.2); BILIRUBIN,TOTAL 0.6 mg/dL (0.2-1.0); CALCIUM 8.9 mg/dL (8.5-10.3); CREATININE 0.8 mg/dL (0.6-1.3); POTASSIUM 3.9 mmol/L (3.5-4.5); TOTAL PROTEIN 5.6 g/dL (6.4-8.9)
[2023-07-26 06:01] LABS: BILIRUBIN,URINE NEGATIVE (NEGATIVE); GLUCOSE, URINE (UA) NEGATIVE (NEGATIVE); KETONES,URINE (UA) NEGATIVE (NEGATIVE); LEUKOCYTE ESTERASE, URINE TRACE (NEGATIVE); NITRITE,URINE NEGATIVE (NEGATIVE); OCCULT BLOOD,URINE NEGATIVE (NEGATIVE); PH,URINE 6.5 PH (5.0-7.5); PROTEIN,URINE NEGATIVE (NEGATIVE); UROBILINOGEN,URINE 0.2 (NORMAL) E.U./dL (NORMAL)
[2023-07-26 06:02] LABS: CLARITY,URINE CLEAR (CLEAR)
[2023-07-26 06:16] LABS: BACTERIA,URINE Rare /HPF (None Seen); RBC,URINE 0-5 /HPF (0-5); SQUAMOUS EPITHELIAL CELL,UR FEW Squamous (<= Few)
[2023-07-26] MEDS: LEVOTHYROXINE 100 MCG TABLET PO SCH (06:56)
[2023-07-26] MEDS: BUDESONIDE 0.5 MG/2 ML NEB INH SCH (07:00)
[2023-07-26] MEDS: FORMOTEROL FUMARATE NEB 20 MCG/2 ML INH SCH (07:00)
[2023-07-26] MEDS: CYANOCOBALAMIN 500 MCG TABLET PO SCH (08:29)
[2023-07-26] MEDS: LORATADINE 10 MG TABLET PO SCH (08:29)
[2023-07-26] MEDS: CHOLECALCIFEROL 400 UNIT TABLET PO SCH (08:29)
[2023-07-26] MEDS: CALCIUM CARBONATE CHEW 500 MG TABLET PO SCH (08:29)
[2023-07-26] MEDS: LATANOPROST 0.005% OPHTH DROPS EACHEYE SCH (08:30)
[2023-07-26] MEDS: MULTIVITAMIN W/MINERALS TABLET PO SCH (08:31)
[2023-07-26] MEDS: MAGNESIUM OXIDE 400 MG TABLET PO SCH (08:31)
[2023-07-26] MEDS ORDERED: UBIDECARENONE 10 MG PO SCH (09:00)
--- NOTE | 2023-07-26 10:02 | PHARMACY PROGRESS NOTE ---
- Best Possible Medication History Admit Date and Time: 07/25/232054 Processed by: Pharmacy Medications reviewed in ED?: Yes Medication History completed: Yes Patient Interview: Completed Secondary Source(s): Physician records, Insurance records As the person ultimately responsible for medication therapy, providers are able to order a medication from an existing home medication list in [facility] via the "Reconcile Routine" prior to Confirmation of that medication by student support counselor. Such practice is discouraged except when the physician, in their clinical judgment, deems that a medical need exists for a medication without regard to previous use.
[2023-07-26] MEDS: DOCUSATE SODIUM 100 MG CAPSULE PO PRN (10:56)
[2023-07-26] MEDS: polyethylene glycoL 3350 17 GM PACKET PO PRN (10:56)
[2023-07-26] MEDS ORDERED: DICLOFENAC SODIUM 1% GEL 50 GM TUBE TOP PRN (11:52)
[2023-07-26] MEDS: LACTULOSE 10 GM /15 ML UDC PO SCH (12:30)
[2023-07-26] MEDS: ACETAMINOPHEN 500 MG TABLET PO SCH (12:30)
--- NOTE | 2023-07-26 14:06 | PROVIDER PROGRESS NOTE ---
Subjective - Prog Note Date Prog Note Date: 07/26/23 Prog Note Time: 14:10 - Subjective Pt reports feeling: No change Subjective: The patient is an extremely pleasant 87-year-old female who normally is quite active and loves to garden. She presented to the emergency room with worsening back pain x 1 week. She has not had any trauma or falls but does admit that she has been working very hard in her garden. She presented to the emergency room a few days ago and was diagnosed with a muscle sprain or spasm. She was discharged with Flexeril and was told to take scheduled Tylenol but has had no relief. She also complained of being significantly constipated. She had a CT scan of the abdomen and pelvis which revealed a moderate L1 vertebral compression fraction with approximately 5 mm retropulsion of osseous fragments resulting in mild to moderate narrowing of the bony spinal canal. She also was noted to have a large amount of stool throughout the colon. At the time of admission she was found to have no neurologic deficits. The emergency room physician spoke with neurosurgery and Ortho. They recommended physical therapy and Occupational Therapy as well as pain control. Also it was recommended that she get a TLSO brace. According to the emergency room note the neurosurgeon they reached out to did not feel that the patient would benefit from kyphoplasty or arthroplasty. He recommended a TLSO brace and recommended admission to get her pain under better control. When I saw the patient today she has not yet been seen by physical therapy. She has been taking oxycodone and IV morphine and that is making her somewhat groggy. She is hoping that she will be able to go home. We discussed the p ossibility of going to rehab and she understands that she may need to go but she is hoping she will be good enough to go home. She is going to try very hard with physical therapy today. She denies fever or chills. No chest pain or heart palpitations. She has had no nausea or vomiting. She says she has not had a bowel movement in a week since her back started hurting. She has no urinary complaints. However nursing staff this afternoon indicated that the patient was retaining urine. An In-N-Out one-time catheterization has been ordered. We are going to aggressively treat her constipation this afternoon. Current Medications - Current Medications Current Medications: Acetaminophen 1000 mg p.o. every 6 hours scheduled Eliquis 2.5 mg p.o. twice daily Brimonidine 0.2% ophthalmic solution 1 drop each eye twice daily Pulmicort 0.5 mg inhalation twice daily Calcium carbonate 500 mg p.o. twice daily Cholecalciferol 400 units p.o. daily Vitamin B12 1000 mcg daily Flexeril 10 mg p.o. 3 times daily as needed Diclofenac sodium 2 g topically 4 times daily as needed pain Colace 100 mg p.o. twice daily as needed Colace 250 mg p.o. daily Dorzolamide 2% ophthalmic solution 1 drop each eye 3 times daily Formoterol fumarate 20 mcg inhalation twice daily Hydrocodone 5 mg 1 p.o. every 4 hours as needed pain Motrin 600 mg p.o. every 8 hours as needed Lactulose 10 g p.o. 4 times daily Latanoprost 0.005% 1 drop each eye twice daily Synthroid 200 mcg p.o. daily Claritin 10 mg daily Magnesium oxide 200 mg daily Metoprolol tartrate 25 mg p.o. twice daily Singulair 10 mg p.o. every afternoon Morphine 1 mg IV every 2 hours as needed 10 Multivitamin with minerals 1 p.o. daily Zofran 0.4 mg ODT p.o. every 6 hours as needed nausea MiraLAX 17 g daily as needed MiraLAX 17 g daily Senna 8.6/17.2 mg daily Objective - Vital Signs/Intake & Output Reviewed Vital Signs: Yes Vital Signs: Vital Signs x48h Temp Pulse Pulse Resp BP BP Pulse Ox 07/26/23 11:15 36.6 C 56 L 18 100/54 L 94 07/26/23 08:29 131/84 H 07/26/23 08:21 36.9 C 80 18 130/84 H 95 07/26/23 07:07 07/26/23 07:05 69 15 O2 Flow Rate 07/26/23 11:15 07/26/23 08:29 07/26/23 08:21 2 07/26/23 07:07 1 07/26/23 07:05 2 Intake & Output: Intake & Output 07/23/23 07/24/23 07/25/23 07/26/23 23:59 23:59 23:59 23:59 Intake Total 150 2442 Output Total 650 Balance 150 1792 - Objective General Appearance: positive: No acute distress Eyes Bilateral: positive: Normal inspection ENT: positive: ENT inspection nml Neck: positive: Nml inspection Respiratory: positive: Chest non-tender, No respiratory distress, Breath sounds nml Cardiovascular: positive: No murmur, No gallop. negative: Friction rub Abdomen: positive: Other (Somewhat firm, hypoactive bowel sounds) Skin: positive: Color nml, No rash, Warm, Dry Extremities: positive: Non-tender, Nml appearance Neurologic/Psychiatric: positive: Oriented x3, CN's nml (2-12) - Lab Results Fish Bones: 07/26/23 04:50 07/26/23 04:50 Other Labs: Lab Results x24hrs 07/26/23 07/26/23 07/26/23 Range/Units 05:37 04:50 04:50 WBC 6.4 (4.8-10.8) x10^3/uL RBC 3.35 L (4.20-5.40) 10^6/uL Hgb 11.3 L (12.0-16.0) g/dL Hct 34.3 L (37.0-47.0) % MCV 102.4 H (81.0-99.0) fL MCH 33.7 H (27.0-31.0) pg MCHC 32.9 (32.0-36.0) g/dL RDW 13.0 (12.0-15.0) % Plt Count 186 (130-450) 10^3/uL MPV 9.4 (7.9-10.8) fL Neut # (Auto) 4.6 (1.5-6.6) 10^3/uL Lymph # (Auto) 0.7 L (1.5-3.5) 10^3/uL Mills # (Auto) 0.8 (0.0-1.0) 10^3/uL Eos # (Auto) 0.3 (0.0-0.7) 10^3/uL Baso # (Auto) 0.1 (0.0-0.1) 10^3/uL Absolute Nucleated RBC 0.00 x10^3/uL Nucleated RBC % 0.0 /100WBC Sodium 130 L (135-145) mmol/L Potassium 3.9 (3.5-4.5) mmol/L Chloride 104 (101-111) mmol/L Carbon Dioxide 26 (21-32) mmol/L Anion Gap 0.0 L (6-13) BUN 17 (6-20) mg/dL Creatinine 0.8 (0.6-1.3) mg/dL Estimated GFR (MDRD) 68 L (>89) Glucose 90 (74-104) mg/dL Estimat Average Glucose (70-100) mg/dL Hemoglobin A1c % (4.27-6.07) % Calcium 8.9 (8.5-10.3) mg/dL Magnesium (1.7-2.3) mg/dL Total Bilirubin 0.6 (0.2-1.0) mg/dL AST 15 (10-42) IU/L ALT 11 (10-60) IU/L Alkaline Phosphatase 68 (42-121) IU/L Total Protein 5.6 L (6.4-8.9) g/dL Albumin 3.3 (3.2-5.5) g/dL Globulin 2.3 (2.1-4.2) g/dL Albumin/Globulin Ratio 1.4 (1.0-2.2) Triglycerides (48-352) mg/dL Cholesterol ( - 200) mg/dL LDL Cholesterol, Calc ( - 129) mg/dL VLDL Cholesterol mg/dL HDL Cholesterol (60 - ) mg/dL LDL/HDL Ratio (<4.4) Cholesterol/HDL Ratio (<4.4) TSH (0.34-5.60) uIU/mL Urine Color YELLOW Urine Clarity CLEAR (CLEAR) Urine pH 6.5 (5.0-7.5) PH Ur Specific [place] <=1.005 (1.002-1.030) Urine Protein NEGATIVE (NEGATIVE) mg/dL Urine Glucose (UA) NEGATIVE (NEGATIVE) mg/dL Urine Ketones NEGATIVE (NEGATIVE) mg/dL Urine Occult Blood NEGATIVE (NEGATIVE) Urine Nitrite NEGATIVE (NEGATIVE) Urine Bilirubin NEGATIVE (NEGATIVE) Urine Urobilinogen 0.2 (NORMAL) (NORMAL) E.U./dL Ur Leukocyte Esterase TRACE H (NEGATIVE) Urine RBC 0-5 (0-5) /HPF Urine WBC 4-5 (0-5) /HPF Ur Squamous Epith Cells FEW Squamous (<= Few) Urine Bacteria Rare (None Seen) /HPF Ur Microscopic Review INDICATED Urine Culture Comments INDICATED 07/25/23 07/25/23 07/25/23 Range/Units 21:15 21:15 21:15 WBC 6.1 (4.8-10.8) x10^3/uL RBC 3.80 L (4.20-5.40) 10^6/uL Hgb 12.7 (12.0-16.0) g/dL Hct 38.9 (37.0-47.0) % MCV 102.4 H (81.0-99.0) fL MCH 33.4 H (27.0-31.0) pg MCHC 32.6 (32.0-36.0) g/dL RDW 12.9 (12.0-15.0) % Plt Count 215 (130-450) 10^3/uL MPV 9.4 (7.9-10.8) fL Neut # (Auto) 4.4 (1.5-6.6) 10^3/uL Lymph # (Auto) 0.8 L (1.5-3.5) 10^3/uL Mills # (Auto) 0.6 (0.0-1.0) 10^3/uL Eos # (Auto) 0.2 (0.0-0.7) 10^3/uL Baso # (Auto) 0.1 (0.0-0.1) 10^3/uL Absolute Nucleated RBC 0.00 x10^3/uL Nucleated RBC % 0.0 /100WBC Sodium 134 L (135-145) mmol/L Potassium 3.9 (3.5-4.5) mmol/L Chloride 101 (101-111) mmol/L Carbon Dioxide 27 (21-32) mmol/L Anion Gap 6.0 (6-13) BUN 17 (6-20) mg/dL Creatinine 0.7 (0.6-1.3) mg/dL Estimated GFR (MDRD) 79 L (>89) Glucose 97 (74-104) mg/dL Estimat Average Glucose 108 H (70-100) mg/dL Hemoglobin A1c % 5.4 (4.27-6.07) % Calcium 9.4 (8.5-10.3) mg/dL Magnesium (1.7-2.3) mg/dL Total Bilirubin 0.6 (0.2-1.0) mg/dL AST 17 (10-42) IU/L ALT 13 (10-60) IU/L Alkaline Phosphatase 77 (42-121) IU/L Total Protein 6.5 (6.4-8.9) g/dL Albumin 3.8 (3.2-5.5) g/dL Globulin 2.7 (2.1-4.2) g/dL Albumin/Globulin Ratio 1.4 (1.0-2.2) Triglycerides (48-352) mg/dL Cholesterol ( - 200) mg/dL LDL Cholesterol, Calc ( - 129) mg/dL VLDL Cholesterol mg/dL HDL Cholesterol (60 - ) mg/dL LDL/HDL Ratio (<4.4) Cholesterol/HDL Ratio (<4.4) TSH (0.34-5.60) uIU/mL Urine Color Urine Clarity (CLEAR) Urine pH (5.0-7.5) PH Ur Specific [place] (1.002-1.030) Urine Protein (NEGATIVE) mg/dL Urine Glucose (UA) (NEGATIVE) mg/dL Urine Ketones (NEGATIVE) mg/dL Urine Occult Blood (NEGATIVE) Urine Nitrite (NEGATIVE) Urine Bilirubin (NEGATIVE) Urine Urobilinogen (NORMAL) E.U./dL Ur Leukocyte Esterase (NEGATIVE) Urine RBC (0-5) /HPF Urine WBC (0-5) /HPF Ur Squamous Epith Cells (<= Few) Urine Bacteria (None Seen) /HPF Ur Microscopic Review Urine Culture Comments 07/25/23 07/25/23 Range/Units 21:15 13:01 WBC (4.8-10.8) x10^3/uL RBC (4.20-5.40) 10^6/uL Hgb (12.0-16.0) g/dL Hct (37.0-47.0) % MCV (81.0-99.0) fL MCH (27.0-31.0) pg MCHC (32.0-36.0) g/dL RDW (12.0-15.0) % Plt Count (130-450) 10^3/uL MPV (7.9-10.8) fL Neut # (Auto) (1.5-6.6) 10^3/uL Lymph # (Auto) (1.5-3.5) 10^3/uL Mills # (Auto) (0.0-1.0) 10^3/uL Eos # (Auto) (0.0-0.7) 10^3/uL Baso # (Auto) (0.0-0.1) 10^3/uL Absolute Nucleated RBC x10^3/uL Nucleated RBC % /100WBC Sodium (135-145) mmol/L Potassium (3.5-4.5) mmol/L Chloride (101-111) mmol/L Carbon Dioxide (21-32) mmol/L Anion Gap (6-13) BUN (6-20) mg/dL Creatinine (0.6-1.3) mg/dL Estimated GFR (MDRD) (>89) Glucose (74-104) mg/dL Estimat Average Glucose (70-100) mg/dL Hemoglobin A1c % (4.27-6.07) % Calcium (8.5-10.3) mg/dL Magnesium 2.0 1.9 (1.7-2.3) mg/dL Total Bilirubin (0.2-1.0) mg/dL AST (10-42) IU/L ALT (10-60) IU/L Alkaline Phosphatase (42-121) IU/L Total Protein (6.4-8.9) g/dL Albumin (3.2-5.5) g/dL Globulin (2.1-4.2) g/dL Albumin/Globulin Ratio (1.0-2.2) Triglycerides 85 (48-352) mg/dL Cholesterol 158 ( - 200) mg/dL LDL Cholesterol, Calc 94 ( - 129) mg/dL VLDL Cholesterol 17 mg/dL HDL Cholesterol 47 L (60 - ) mg/dL LDL/HDL Ratio 2.0 (<4.4) Cholesterol/HDL Ratio 3.4 (<4.4) TSH 9.76 H (0.34-5.60) uIU/mL Urine Color Urine Clarity (CLEAR) Urine pH (5.0-7.5) PH Ur Specific [place] (1.002-1.030) Urine Protein (NEGATIVE) mg/dL Urine Glucose (UA) (NEGATIVE) mg/dL Urine Ketones (NEGATIVE) mg/dL Urine Occult Blood (NEGATIVE) Urine Nitrite (NEGATIVE) Urine Bilirubin (NEGATIVE) Urine Urobilinogen (NORMAL) E.U./dL Ur Leukocyte Esterase (NEGATIVE) Urine RBC (0-5) /HPF Urine WBC (0-5) /HPF Ur Squamous Epith Cells (<= Few) Urine Bacteria (None Seen) /HPF Ur Microscopic Review Urine Culture Comments - Diagnostic Imaging Diagnostic Imaging Results: positive: Final report reviewed ABX Reporting Has patient been on IV antibiotics over the past 48 hours?: No Sepsis Event Note (H) - Evaluation Current Stage of Sepsis: Ruled out Assessment/Plan - Problem List (1) Pathologic compression fracture of lumbar vertebra Impression: This is likely a pathologic compression fracture due to her known osteopenia. She has been unable to have a bowel movement since her back injury 1 week ago. Will obtain an MRI of the lumbar spine for more dedicated imaging. This appears to be an L1 compression fracture that is not amenable to kyphoplasty per neurosurgery's review of her abdominal film.. Neurosurgery recommended a TLSO brace which has been ordered. She is having severe back pain. Have placed her on scheduled Tylenol 1000 mg every 6 hours. Also on hydrocodone. She has IV morphine available for severe pain. Physical therapy and Occupational Therapy will evaluate her tomorrow. Her goal is to go home but she may require subacute rehabilitation prior to going home. Will see how she does today. (2) Constipation Impression: Will aggressively treat her constipation (3) Urinary retention Impression: really come well and I will order an the patient will have an In-N-Out catheterization this afternoon. Hopefully once we relieve her constipation she will be able to void. Will continue to BladderScan and In-N-Out cath as needed (4) Osteopenia Impression: Likely the cause of her underlying fracture. She has been placed on calcium carbonate and vitamin D today. I also have ordered a multivitamin (5) Paroxysmal atrial fibrillation Impression: Currently in a sinus rhythm and rate controlled. Continue metoprolol tartrate 25 mg twice daily. Continue Eliquis for anticoagulation (6) Chronic anticoagulation Impression: Continue Eliquis 2.5 mg twice daily (7) COPD (chronic obstructive pulmonary disease) Impression: Fortunately no evidence of exacerbation. Continue home bronchodilator (8) Hypothyroid Impression: TSH is somewhat high. Continue 200 mcg of Synthroid. She will need thyroid levels checked at her primary follow-up. She may need titration of her medication. (9) Glaucoma Impression: Continue eyedrops (10) Hyponatremia Impression: Of undetermined significance at this point. She will have a chemistry panel drawn in the morning (11) Hyperglycemia Impression: Likely reactive to pain from her compression fracture (12) Ambulatory dysfunction Impression: The patient is having severe back pain. Physical therapy and Occupational Therapy will evaluate the patient. She will get a TLSO brace today. Depending how she does with therapy today we will determine whether she needs subacute rehabilitation at discharge. Of note she has asked if she did need rehab if she could be admitted to our swing bed rehab. Will discuss this with social work to see if she qualifies Time spent: 35 minutes I have discussed this case with Dr Perez and he is in agreement with the assessment and plan
[2023-07-26] MEDS: HYDROcod/ACETAM 5/325 MG TABLET PO PRN (15:48)
[2023-07-26] MEDS: SODIUM CHLORIDE FLUSH 0.9% 10 ML SYRINGE IVP PRN (18:49)
--- NOTE | 2023-07-26 19:06 | MRI Report ---
PROCEDURE: MRI lumbar spine without contrast INDICATIONS: L1 compression fracture with constipation TECHNIQUE: Multiplanar multisequential MRI images of the lumbar spine were obtained without intraven ous contrast. COMPARISON: None. FINDINGS: Alignment and Curvature: There is normal bony alignment. Bone Marrow: Wedge-shaped L1 compression fracture with 10% anterior height loss and internal marrow signal. Small retropulsed fracture fragment results in mild central stenosis asymmetric to the left Spinal Cord: Conus medullaris terminates at the L1 level. Visualized cord demonstrates normal signa l and size. Paraspinal Soft Tissues: Unremarkable perivertebral soft tissues. T12-L1: Normal disc. Posterior retropulsed fracture fragment results in mild central stenosis. No fo raminal stenosis. L1-L2: Disc height is preserved. No central or foraminal stenosis. L2-L3: Disc height is preserved. No central or foraminal stenosis. L3-L4: Normal in appearance. L4-L5: Normal in appearance. L5-S1: Disc space narrowing. No central stenosis. No foraminal stenosis IMPRESSION: Acute to subacute L1 compression fracture Reviewed by: Chadwick Miranda MD on 07/26/2023 6:05 PM JIN Approved by: Chadwick Miranda MD on 07/26/2023 6:05 PM JIN Station ID: [id number]
[2023-07-26] MEDS: MONTELUKAST 10 MG TABLET PO SCH (21:40)
[2023-07-26] MEDS: SALINE ENEMA 133 ML BOTTLE RC ONE (23:54)
[2023-07-27] MEDS: DOCUSATE SODIUM 250 MG CAPSULE PO SCH (08:33)
[2023-07-27] MEDS: polyethylene glycoL 3350 17 GM PACKET PO SCH (08:33)
[2023-07-27] MEDS: SENNA 8.6 MG TABLET PO SCH (08:34)
[2023-07-27] MEDS: MAGNESIUM HYDROXIDE 2,400 MG/30 ML UDC PO PRN (10:46)
[2023-07-27] MEDS: KETOROLAC 30 MG/ML VIAL IVP PRN (10:46)
--- NOTE | 2023-07-27 11:30 | PROVIDER PROGRESS NOTE ---
Subjective - Prog Note Date Prog Note Date: 07/27/23 Prog Note Time: 11:40 - Subjective Pt reports feeling: Worse Subjective: The patient is an 87-year-old female who presented to the emergency room with severe back pain and severe constipation. CT scan of the abdomen and pelvis revealed a large stool burden throughout the colon. She also was incidentally noted to have an L1 compression fracture. The patient has not had a recent fall but has been working aggressively in her garden. She has known osteopenia. Yesterday the patient had an MRI of the lumbar spine which does reveal a acute to subacute compression fracture. I am reaching out to [facility] for neurosurgery consult to see if this compression fracture would be amenable to kyphoplasty. In spite of an aggressive bowel regimen the patient still has not had a bowel movement. She is quite distended and has developed new urinary retention. This morning she is quite miserable with all of this. She has abdominal pain. She has pain in her back when she tries to move and is quite frustrated with the whole situation. She denies fever or chills. No chest pain or heart palpitations. She has not had any nausea and has been able to eat. She had an enema yesterday evening and really it was unsuccessful. She has been receiving in and out catheterizations yesterday but finally they placed a Willis catheter overnight. Current Medications - Current Medications Current Medications: Acetaminophen 1000 mg p.o. every 6 hours scheduled Eliquis 2.5 mg p.o. twice daily Brimonidine 0.2% ophthalmic solution 1 drop each eye twice daily Pulmicort 0.5 mg inhalation twice daily Calcium carbonate 500 mg p.o. twice daily Cholecalciferol 400 units p.o. daily Vitamin B12 1000 mcg daily Flexeril 10 mg p.o. 3 times daily as needed Diclofenac sodium 2 g topically 4 times daily as needed pain Colace 100 mg p.o. twice daily as needed Colace 250 mg p.o. daily Dorzolamide 2% ophthalmic solution 1 drop each eye 3 times daily Formoterol fumarate 20 mcg inhalation twice daily Hydrocodone 5 mg 1 p.o. every 4 hours as needed pain Motrin 600 mg p.o. every 8 hours as needed Lactulose 30 g p.o. 4 times daily Latanoprost 0.005% 1 drop each eye twice daily Synthroid 200 mcg p.o. daily Claritin 10 mg daily Magnesium oxide 200 mg daily Metoprolol tartrate 25 mg p.o. twice daily Singulair 10 mg p.o. every afternoon Morphine 1 mg IV every 2 hours as needed 10 Multivitamin with minerals 1 p.o. daily Zofran 0.4 mg ODT p.o. every 6 hours as needed nausea MiraLAX 17 g daily as needed MiraLAX 17 g daily Senna 8.6/17.2 mg daily Milk of magnesia 2400 g once Objective - Vital Signs/Intake & Output Vital Signs: Vital Signs x48h Temp Pulse Pulse Resp BP BP Pulse Ox 07/27/23 08:02 127/79 07/27/23 07:37 36.1 C L 72 16 127/79 93 07/27/23 05:52 36.6 C 107 H 16 107/76 96 07/27/23 05:35 101 H 24 O2 Flow Rate 07/27/23 08:02 07/27/23 07:37 3 07/27/23 05:52 3 07/27/23 05:35 2 Intake & Output: Intake & Output 07/24/23 07/25/23 07/26/23 07/27/23 23:59 23:59 23:59 23:59 Intake Total 150 3280.333 1420 Output Total 3285 950 Balance 150 -4.667 470 - Objective General Appearance: positive: Mild distress, Other (She appears to be quite uncomfortable) ENT: positive: ENT inspection nml Neck: positive: Nml inspection Respiratory: positive: No respiratory distress, Breath sounds nml Cardiovascular: positive: Regular rate & rhythm, No murmur, No gallop. negative: Friction rub Abdomen: positive: Other (The patients abdomen is distended and firm. Mild tenderness to palpation diffusely. She has passed only a little gas and passed only a little stool with the enema last night) Skin: positive: Color nml, No rash, Warm, Dry Extremities: positive: Non-tender, Full ROM Neurologic/Psychiatric: positive: Oriented x3, CN's nml (2-12) - Lab Results Fish Bones: 07/26/23 04:50 07/26/23 04:50 - Diagnostic Imaging Diagnostic Imaging Results: positive: Final report reviewed ABX Reporting Has patient been on IV antibiotics over the past 48 hours?: No Sepsis Event Note (H) - Evaluation Current Stage of Sepsis: Ruled out Assessment/Plan - Problem List (1) Pathologic compression fracture of lumbar vertebra Impression: The patient's MRI revealed an acute to subacute L1 compression fracture. There was no evidence of cauda equina syndrome. She says that the pain in her back is worse but she is also severely constipated and quite uncomfortable all the way around. I have a neurosurgery consult to [facility] pending to see if her compression fracture would be amenable to kyphoplasty. (2) Constipation Impression: The patient was on lactulose 10 g 4 times daily yesterday. She is on 250 mg of Colace. She is on MiraLAX 17 g daily as well as senna 17.2 mg daily. In spite of this and receiving another enema last night she still has not had a bowel movement. MRI of the brain did not reveal any evidence of cauda equina. Today her lactulose will be increased to 30 g 4 times daily until she has a bowel movement. She was given 2400 mg of milk of magnesia as well. Continue aggressive bowel regimen. (3) Urinary retention Impression: The patient has developed new urinary retention. This might be due to the severity of her constipation. She currently has a Willis catheter in place. We will try a voiding trial after her constipation is relieved. She had no signs of urinary tract infection on urinalysis. She also is receiving narcotic pain medications. Will place the patient on 0.4 mg of Flomax for now. (4) Osteopenia Impression: The patient developed a compression fracture just while gardening. I placed her on calcium carbonate and vitamin D. She likely will need a repeat bone density scan as an outpatient. (5) Paroxysmal atrial fibrillation Impression: Currently in a sinus rhythm and rate controlled. Continue metoprolol tartrate 25 mg twice daily. Continue Eliquis for anticoagulation (6) Chronic anticoagulation Impression: Continue Eliquis (7) COPD (chronic obstructive pulmonary disease) Impression: No evidence of exacerbation. Quiescent (8) Hypothyroid Impression: TSH is somewhat high. Continue 200 mcg of Synthroid. She will need thyroid levels checked at her primary follow-up. She may need titration of her medication. (9) Glaucoma Impression: Continue eyedrops (10) Hyponatremia Impression: Problem that so that undetermined significance at this point. I suspect this is likely chronic. She will have a chemistry panel drawn in the morning (11) Hyperglycemia Impression: Likely reactive. Resolved. (12) Ambulatory dysfunction Impression: I have reached out to [facility] to see whether her compression fracture is a menable to kyphoplasty. In the meantime she will continue to work with physical therapy and Occupational Therapy here in the hospital. She is going to need some sort of rehab either in our swing bed unit or subacute rehabilitation in a skilled facility. Time spent: 35 minutes I have discussed this patient with Dr. Perez. He is in agreement with the assessment and plan.
[2023-07-27] MEDS: LACTULOSE 10 GM /15 ML UDC PO SCH (12:50)
[2023-07-27] MEDS: LIDOCAINE PATCH 5% TOP PRN (13:54)
[2023-07-27] MEDS: TAMSULOSIN 0.4 MG CAPSULE PO SCH (13:57)
[2023-07-27] MEDS: LATANOPROST 0.005% OPHTH DROPS EACHEYE SCH (20:46)
[2023-07-27] MEDS: SODIUM CHLORIDE 0.9% 500 ML IV ONE (21:58)
[2023-07-27] MEDS: SODIUM CHLORIDE 0.9% 1,000 ML IV SCH (22:49)
--- NOTE | 2023-07-28 11:51 | PROVIDER PROGRESS NOTE ---
Assessment/Plan - Problem List (1) Compression fracture of L1 vertebra Assessment/Plan: (1) Pathologic compression fracture of lumbar vertebra Impression: --Pain control available. --Pending transfer to [place] for kyphoplasty after discussion and MRI review with Neurosurgery yesterday. --PT/OT consulted. (2) Constipation Impression: --Resolved (3) Urinary retention Impression: --Willis catheter placed. This is likely due to pain from her fracture. (4) Osteopenia Impression: The patient developed a compression fracture just while gardening. I placed her on calcium carbonate and vitamin D. She likely will need a repeat bone density scan as an outpatient. (5) Paroxysmal atrial fibrillation Impression: Currently in a sinus rhythm and rate controlled. Continue metoprolol tartrate 25 mg twice daily. Continue Eliquis for anticoagulation (6) Chronic anticoagulation Impression: Continue Eliquis (7) COPD (chronic obstructive pulmonary disease) Impression: No evidence of exacerbation. Quiescent (8) Hypothyroid Impression: TSH is somewhat high. Continue 200 mcg of Synthroid. She will need thyroid levels checked at her primary follow-up. She may need titration of her medicat ion. - Current Meds Current Meds: Current Medications Generic Name Dose Route Start Last Admin Trade Name Freq PRN Reason Stop Dose Admin Acetaminophen 650 mg 07/25/23 20:55 07/27/23 16:16 Acetaminophen 325 Mg Tablet PO 650 mg Q6H PRN Administration Pain 1 to 4, or Fever Hydrocodone Bitart/Acetaminophen 1 tab 07/26/23 11:51 07/28/23 05:34 Hydrocod/Acetam 5/325 Mg Tablet PO 1 tab Q4HR PRN Administration Moderate Pain (Level 4-6) Apixaban 2.5 mg 07/25/23 21:00 07/28/23 08:28 Apixaban 2.5 Mg Tablet PO 2.5 mg BID STEVE Administration Brimonidine Tartrate 1 drops 07/25/23 21:00 07/28/23 08:28 Brimonidine 0.2% Ophth Drops 5 Ml EACHEYE 1 drops BID STEVE Administration Budesonide 0.5 mg 07/26/23 07:00 07/28/23 06:39 Budesonide 0.5 Mg/2 Ml Neb INH 0.5 mg RTBID STEVE Administration Calcium Carbonate/Glycine 500 mg 07/26/23 09:00 07/28/23 08:25 Calcium Carbonate Chew 500 Mg Tablet PO 500 mg BID STEVE Administration Cholecalciferol 400 unit 07/26/23 09:00 07/28/23 08:26 Cholecalciferol 400 Unit Tablet PO 400 unit DAILY STEVE Administration Cyanocobalamin 1,000 mcg 07/26/23 09:00 07/28/23 08:27 Cyanocobalamin 500 Mcg Tablet PO 1,000 mcg DAILY STEVE Administration Cyclobenzaprine HCl 10 mg 07/25/23 20:59 07/27/23 03:37 Cyclobenzaprine 10 Mg Tablet PO 10 mg TID PRN Administration Spasms Docusate Sodium 100 mg 07/25/23 21:02 07/26/23 21:40 Docusate Sodium 100 Mg Capsule PO 100 mg BID PRN Administration Constipation Docusate Sodium 250 - 500 mg 07/27/23 09:00 07/28/23 08:28 Docusate Sodium 250 Mg Capsule PO 250 mg DAILY STEVE Administration Dorzolamide HCl 1 drops 07/25/23 22:00 07/28/23 06:09 Dorzolamide 2% Ophth Drops EACHEYE 1 drops TID STEVE Administration Formoterol Fumarate 20 mcg 07/26/23 07:00 07/28/23 06:39 Formoterol Fumarate Neb 20 Mcg/2 Ml INH 20 mcg RTBID STEVE Administration Sodium Chloride 1,000 mls @ 75 mls/hr 07/27/23 22:00 07/27/23 22:49 Normal Saline 0.9% IV 07/28/23 21:59 75 mls/hr .[id number] STEVE Administration Ibuprofen 600 mg 07/25/23 20:55 07/26/23 00:37 Ibuprofen 600 Mg Tablet PO 600 mg Q8H PRN Administration Pain 1 to 4 Ketorolac Tromethamine 30 mg 07/27/23 09:24 07/27/23 19:55 Ketorolac 30 Mg/Ml Vial IVP 08/01/23 09:23 30 mg Q6HR PRN Administration Severe Pain (Level 7-10) Latanoprost 1 drops 07/27/23 08:58 07/27/23 20:46 Latanoprost 0.005% Ophth Drops EACHEYE 1 drops QPM STEVE Administration Levothyroxine Sodium 200 mcg 07/26/23 07:00 07/28/23 06:09 Levothyroxine 100 Mcg Tablet PO 200 mcg QDAC STEVE Administration Lidocaine 1 patch 07/27/23 09:27 07/27/23 13:54 Lidocaine Patch 5% TOP 1 patch DAILY PRN Administration Moderate Pain (Level 4-6) Loratadine 10 mg 07/26/23 09:00 07/28/23 08:26 Loratadine 10 Mg Tablet PO 10 mg DAILY STEVE Administration Magnesium Oxide 200 mg 07/26/23 08:00 07/28/23 08:27 Magnesium Oxide 400 Mg Tablet PO 200 mg DAILYWM STEVE Administration Metoprolol Tartrate 25 mg 07/25/23 21:00 07/28/23 08:26 Metoprolol Tartrate 25 Mg Tablet PO 25 mg BID STEVE Administration Montelukast Sodium 10 mg 07/26/23 21:00 07/27/23 20:46 Montelukast 10 Mg Tablet PO 10 mg QPM STEVE Administration Morphine Sulfate 1 mg 07/25/23 20:55 07/27/23 06:23 Morphine 2 Mg/Ml Carpuject IVP 1 mg Q2HR PRN Administration Pain 8 to 10 Multivitamins/Minerals 1 tab 07/26/23 08:00 07/28/23 08:26 Multivitamin W/Minerals Tablet PO 1 tab DAILYWM STEVE Administration Polyethylene Glycol 17 gm 07/25/23 21:02 07/26/23 10:56 Polyethylene Glycol 3350 17 Gm Packet PO 17 gm DAILY PRN Administration Bowel Protocol Polyethylene Glycol 17 gm 07/27/23 09:00 07/28/23 08:28 Polyethylene Glycol 3350 17 Gm Packet PO 17 gm DAILY STEVE Administration Senna 8.6 - 17.2 mg 07/27/23 09:00 07/28/23 08:27 Senna 8.6 Mg Tablet PO 8.6 mg DAILY STEVE Administration Sodium Chloride 10 ml 07/25/23 20:55 07/27/23 16:11 Sodium Chloride Flush 0.9% 10 Ml Syringe IVP 10 ml PRN PRN Administration NEEDED PER PROVIDER ORDERS Sodium Chloride 10 ml 07/26/23 01:00 07/28/23 08:29 Sodium Chloride Flush 0.9% 10 Ml Syringe IVP 10 ml 0100,0900,1700 STEVE Administration Tamsulosin HCl 0.4 mg 07/27/23 12:00 07/28/23 08:26 Tamsulosin 0.4 Mg Capsule PO 0.4 mg DAILY STEVE Administration - Lab Result Fish Bone Diagrams: 07/26/23 04:50 07/26/23 04:50 - Additional Planning My Orders: My Active Orders 07/28/23 12:00 Calcitonin [Fortical] 1 sprays KAILA DAILY Subjective - Subjective Patient Reports: Feeling Better, Resting Comfortably, No Complaints (Large BM yesterday. Still in pain. Plan of care discussed.) Objective Vital Signs: Vital Signs - 24 hr 07/27/23 07/27/23 07/27/23 15:56 20:09 20:48 Temperature 36.7 C Heart Rate 72 Heart Rate [ 72 Brachial] Respiratory 18 20 Rate Blood Pressure 134/85 H Blood Pressure [Left Brachial artery] Blood Pressure 133/88 H [Right Brachial artery] O2 Saturation 93 07/28/23 07/28/23 07/28/23 00:00 06:40 08:22 Temperature 36.5 C 36.5 C Heart Rate 86 Heart Rate [ 74 74 Brachial] Respiratory 16 16 16 Rate Blood Pressure Blood Pressure 100/65 123/76 [Left Brachial artery] Blood Pressure [Right Brachial artery] O2 Saturation 96 95 07/28/23 08:26 Temperature Heart Rate Heart Rate [ Brachial] Respiratory Rate Blood Pressure 123/76 Blood Pressure [Left Brachial artery] Blood Pressure [Right Brachial artery] O2 Saturation Oxygen O2 Source Room air I&O (Last 24 Hrs): Intake and Output Totals x24h 07/26/23 07/27/23 07/28/23 23:59 23:59 23:59 Intake Total 3280.333 3216 620 Output Total 3285 2000 150 Balance -4.667 1216 470 General: Alert, Oriented x3, Cooperative, No acute distress Cardiovascular: Regular rate, Normal S1, Normal S2, No murmurs Respiratory: Chest non-tender, No respiratory distress, Breath sounds nml Abdomen: Normal bowel sounds, Soft, No tenderness, No hepatospenomegaly, No masses - Results Results: Laboratory Results WBC 6.4 x10^3/uL (4.8-10.8) 07/26/23 04:50 RBC 3.35 10^6/uL (4.20-5.40) L 07/26/23 04:50 Hgb 11.3 g/dL (12.0-16.0) L 07/26/23 04:50 Hct 34.3 % (37.0-47.0) L 07/26/23 04:50 MCV 102.4 fL (81.0-99.0) H 07/26/23 04:50 MCH 33.7 pg (27.0-31.0) H 07/26/23 04:50 MCHC 32.9 g/dL (32.0-36.0) 07/26/23 04:50 RDW 13.0 % (12.0-15.0) 07/26/23 04:50 Plt Count 186 10^3/uL (130-450) 07/26/23 04:50 MPV 9.4 fL (7.9-10.8) 07/26/23 04:50 Neut # (Auto) 4.6 10^3/uL (1.5-6.6) 07/26/23 04:50 Lymph # (Auto) 0.7 10^3/uL (1.5-3.5) L 07/26/23 04:50 [place] # (Auto) 0.8 10^3/uL (0.0-1.0) 07/26/23 04:50 Eos # (Auto) 0.3 10^3/uL (0.0-0.7) 07/26/23 04:50 Baso # (Auto) 0.1 10^3/uL (0.0-0.1) 07/26/23 04:50 Absolute Nucleated RBC 0.00 x10^3/uL 07/26/23 04:50 Nucleated RBC % 0.0 /100WBC 07/26/23 04:50 Sodium 130 mmol/L (135-145) L 07/26/23 04:50 Potassium 3.9 mmol/L (3.5-4.5) 07/26/23 04:50 Chloride 104 mmol/L (101-111) 07/26/23 04:50 Carbon Dioxide 26 mmol/L (21-32) 07/26/23 04:50 Anion Gap 0.0 (6-13) L 07/26/23 04:50 BUN 17 mg/dL (6-20) 07/26/23 04:50 Creatinine 0.8 mg/dL (0.6-1.3) 07/26/23 04:50 Estimated GFR (MDRD) 68 (>89) L 07/26/23 04:50 Glucose 90 mg/dL (74-104) 07/26/23 04:50 Estimat Average Glucose 108 mg/dL (70-100) H 07/25/23 21:15 Hemoglobin A1c % 5.4 % (4.27-6.07) 07/25/23 21:15 Calcium 8.9 mg/dL (8.5-10.3) 07/26/23 04:50 Magnesium 2.0 mg/dL (1.7-2.3) 07/25/23 21:15 Total Bilirubin 0.6 mg/dL (0.2-1.0) 07/26/23 04:50 AST 15 IU/L (10-42) 07/26/23 04:50 ALT 11 IU/L (10-60) 07/26/23 04:50 Alkaline Phosphatase 68 IU/L (42-121) 07/26/23 04:50 Total Protein 5.6 g/dL (6.4-8.9) L 07/26/23 04:50 Albumin 3.3 g/dL (3.2-5.5) 07/26/23 04:50 Globulin 2.3 g/dL (2.1-4.2) 07/26/23 04:50 Albumin/Globulin Ratio 1.4 (1.0-2.2) 07/26/23 04:50 Triglycerides 85 mg/dL (48-352) 07/25/23 21:15 Cholesterol 158 mg/dL (-200) 07/25/23 21:15 LDL Cholesterol, Calc 94 mg/dL (-129) 07/25/23 21:15 VLDL Cholesterol 17 mg/dL 07/25/23 21:15 HDL Cholesterol 47 mg/dL (60-) L 07/25/23 21:15 LDL/HDL Ratio 2.0 (<4.4) 07/25/23 21:15 Cholesterol/HDL Ratio 3.4 (<4.4) 07/25/23 21:15 Lipase < 10 U/L (11-82) L 07/25/23 13:01 TSH 9.76 uIU/mL (0.34-5.60) H 07/25/23 21:15 Urine Color YELLOW 07/26/23 05:37 Urine Clarity CLEAR (CLEAR) 07/26/23 05:37 Urine pH 6.5 PH (5.0-7.5) 07/26/23 05:37 Ur Specific [place] <=1.005 (1.002-1.030) 07/26/23 05:37 Urine Protein NEGATIVE mg/dL (NEGATIVE) 07/26/23 05:37 Urine Glucose (UA) NEGATIVE mg/dL (NEGATIVE) 07/26/23 05:37 Urine Ketones NEGATIVE mg/dL (NEGATIVE) 07/26/23 05:37 Urine Occult Blood NEGATIVE (NEGATIVE) 07/26/23 05:37 Urine Nitrite NEGATIVE (NEGATIVE) 07/26/23 05:37 Urine Bilirubin NEGATIVE (NEGATIVE) 07/26/23 05:37 Urine Urobilinogen 0.2 (NORMAL) E.U./dL (NORMAL) 07/26/23 05:37 Ur Leukocyte Esterase TRACE (NEGATIVE) H 07/26/23 05:37 Urine RBC 0-5 /HPF (0-5) 07/26/23 05:37 Urine WBC 4-5 /HPF (0-5) 07/26/23 05:37 Ur Squamous Epith Cells FEW Squamous (<= Few) 07/26/23 05:37 Urine Bacteria Rare /HPF (None Seen) 07/26/23 05:37 Ur Microscopic Review INDICATED 07/26/23 05:37 Urine Culture Comments INDICATED 07/26/23 05:37 Sepsis Event Note (H) - Evaluation Current Stage of Sepsis: Ruled out
[2023-07-28] MEDS: CALCITONIN NASAL SPRAY NAS SCH (12:03)
[2023-07-29] MEDS: SODIUM CHLORIDE 0.9% 500 ML IV ONE (00:59)
[2023-07-29 05:09] LABS: CALCIUM 8.6 mg/dL (8.5-10.3); CREATININE 0.8 mg/dL (0.6-1.3); POTASSIUM 4.3 mmol/L (3.5-4.5)
[2023-07-29] MEDS: SODIUM CHLORIDE 0.9% 1,000 ML IV SCH (06:51)
[2023-07-29 06:52] LABS: BASOPHILS # (AUTO) 0.1 10^3/uL (0.0-0.1); EOSINOPHILS # (AUTO) 0.3 10^3/uL (0.0-0.7); EOSINOPHILS % (AUTO) 5.5 %; HCT - HEMATOCRIT 35.6 % (37.0-47.0); HGB - HEMOGLOBIN 11.9 g/dL (12.0-16.0); LYMPHOCYTES # (AUTO) 0.8 10^3/uL (1.5-3.5); LYMPHOCYTES % (AUTO) 12.5 %; MEAN CORPUSCULAR HEMOGLOBIN 34.1 pg (27.0-31.0); MEAN CORPUSCULAR HGB CONC 33.4 g/dL (32.0-36.0); MEAN PLATELET VOLUME 9.6 fL (7.9-10.8); MONOCYTES # (AUTO) 0.8 10^3/uL (0.0-1.0); MONOCYTES % (AUTO) 12.5 %; NEUTROPHILS # (AUTO) 4.1 10^3/uL (1.5-6.6); PLT - PLATELET COUNT 214 10^3/uL (130-450); RED BLOOD COUNT 3.49 10^6/uL (4.20-5.40); RED CELL DISTRIBUTION WIDTH 13.2 % (12.0-15.0)
[2023-07-29 11:26] LABS: BILIRUBIN,URINE NEGATIVE (NEGATIVE); GLUCOSE, URINE (UA) NEGATIVE (NEGATIVE); KETONES,URINE (UA) NEGATIVE (NEGATIVE); LEUKOCYTE ESTERASE, URINE LARGE (NEGATIVE); NITRITE,URINE NEGATIVE (NEGATIVE); OCCULT BLOOD,URINE LARGE (NEGATIVE); PH,URINE 6.5 PH (5.0-7.5); PROTEIN,URINE 30 mg/dL (NEGATIVE); UROBILINOGEN,URINE 1 (NORMAL) E.U./dL (NORMAL)
[2023-07-29 11:47] LABS: CLARITY,URINE CLOUDY (CLEAR)
[2023-07-29 11:48] LABS: WBC CLUMPS,URINE PRESENT; WBC,URINE >25 /HPF (0-5)
[2023-07-29 11:49] LABS: BACTERIA,URINE Moderate /HPF (None Seen); EPITHELIAL CELLS,UR RARE Renal Tubular /HPF (<= Few); SQUAMOUS EPITHELIAL CELL,UR NONE SEEN (<= Few)
--- NOTE | 2023-07-29 12:40 | PROVIDER PROGRESS NOTE ---
Assessment/Plan - Problem List (1) Compression fracture of L1 vertebra Assessment/Plan: (1) Pathologic compression fracture of lumbar vertebra Impression: --Pain control available. Have added calcitonin nasal spray. --Pending transfer to [place] for kyphoplasty after discussion and MRI review with Neurosurgery yesterday. Have also reached out to [facility]. Awaiting call back. --PT/OT consulted. Current recommendations are for SNF. (2) Constipation Impression: --Resolved (3) Urinary retention Impression: --Willis catheter placed. This is likely due to pain from her fracture. (4) Osteopenia Impression: The patient developed a compression fracture just while gardening. I placed her on calcium carbonate and vitamin D. She likely will need a repeat bone density scan as an outpatient. (5) Paroxysmal atrial fibrillation Impression: Currently in a sinus rhythm and rate controlled. Continue metoprolol tartrate 25 mg twice daily. Continue Eliquis for anticoagulation (6) Chronic anticoagulation Impression: Continue Eliquis (7) COPD (chronic obstructive pulmonary disease) Impression: No evidence of exacerbation. Quiescent (8) Hypothyroid Impression: TSH is somewhat high. Continue 200 mcg of Synthroid. She will need thyroid levels checked at her primary follow-up. She may need titration of her medication. Dispo: Have reached out to [facility] [place] and [facility] for possible transfer. Awaiting call back. In the meantime she is undergoing PT/OT. - Current Meds Current Meds: Current Medications Generic Name Dose Route Start Last Admin Trade Name Freq PRN Reason Stop Dose Admin Acetaminophen 650 mg 07/25/23 20:55 07/27/23 16:16 Acetaminophen 325 Mg Tablet PO 650 mg Q6H PRN Administration Pain 1 to 4, or Fever Hydrocodone Bitart/Acetaminophen 1 tab 07/26/23 11:51 07/29/23 09:53 Hydrocod/Acetam 5/325 Mg Tablet PO 1 tab Q4HR PRN Administration Moderate Pain (Level 4-6) Apixaban 2.5 mg 07/25/23 21:00 07/29/23 08:36 Apixaban 2.5 Mg Tablet PO 2.5 mg BID STEVE Administration Brimonidine Tartrate 1 drops 07/25/23 21:00 07/29/23 08:42 Brimonidine 0.2% Ophth Drops 5 Ml EACHEYE 1 drops BID STEVE Administration Budesonide 0.5 mg 05/29/24 07:00 07/28/23 20:00 Budesonide 0.5 Mg/2 Ml Neb INH 0.5 mg RTBID STEVE Administration Calcitonin [place] 1 sprays 07/28/23 12:00 07/29/23 08:55 Calcitonin Nasal [place] KAILA 08/11/23 11:59 1 sprays DAILY STEVE Administration Calcium Carbonate/Glycine 500 mg 07/26/23 09:00 07/29/23 08:35 Calcium Carbonate Chew 500 Mg Tablet PO 500 mg BID STEVE Administration Cholecalciferol 400 unit 07/26/23 09:00 07/29/23 08:35 Cholecalciferol 400 Unit Tablet PO 400 unit DAILY STEVE Administration Cyanocobalamin 1,000 mcg 07/26/23 09:00 07/29/23 08:35 Cyanocobalamin 500 Mcg Tablet PO 1,000 mcg DAILY STEVE Administration Cyclobenzaprine HCl 10 mg 07/25/23 20:59 07/29/23 06:14 Cyclobenzaprine 10 Mg Tablet PO 10 mg TID PRN Administration Spasms Docusate Sodium 100 mg 07/25/23 21:02 07/26/23 21:40 Docusate Sodium 100 Mg Capsule PO 100 mg BID PRN Administration Constipation Docusate Sodium 250 - 500 mg 07/27/23 09:00 07/29/23 08:55 Docusate Sodium 250 Mg Capsule PO Not Given DAILY STEVE Dorzolamide HCl 1 drops 07/25/23 22:00 07/29/23 06:14 Dorzolamide 2% Ophth Drops EACHEYE 1 drops TID STEVE Administration Formoterol Fumarate 20 mcg 07/26/23 07:00 07/28/23 20:00 Formoterol Fumarate Neb 20 Mcg/2 Ml INH 20 mcg RTBID STEVE Administration Sodium Chloride 1,000 mls @ 100 mls/hr 07/29/23 07:00 07/29/23 09:02 Normal Saline 0.9% IV 100 mls/hr .Q10H STEVE Infusion Ibuprofen 600 mg 07/25/23 20:55 07/26/23 00:37 Ibuprofen 600 Mg Tablet PO 600 mg Q8H PRN Administration Pain 1 to 4 Ketorolac Tromethamine 30 mg 07/27/23 09:24 07/29/23 02:28 Ketorolac 30 Mg/Ml Vial IVP 08/01/23 09:23 30 mg Q6HR PRN Administration Severe Pain (Level 7-10) Latanoprost 1 drops 07/27/23 08:58 07/28/23 21:37 Latanoprost 0.005% Ophth Drops EACHEYE 1 drops QPM STEVE Administration Levothyroxine Sodium 200 mcg 07/26/23 07:00 07/29/23 06:14 Levothyroxine 100 Mcg Tablet PO 200 mcg QDAC STEVE Administration Lidocaine 1 patch 07/27/23 09:27 07/27/23 13:54 Lidocaine Patch 5% TOP 1 patch DAILY PRN Administration Moderate Pain (Level 4-6) Loratadine 10 mg 07/26/23 09:00 07/29/23 08:35 Loratadine 10 Mg Tablet PO 10 mg DAILY STEVE Administration Magnesium Oxide 200 mg 07/26/23 08:00 07/29/23 08:36 Magnesium Oxide 400 Mg Tablet PO 200 mg DAILYWM STEVE Administration Metoprolol Tartrate 25 mg 07/25/23 21:00 07/29/23 08:35 Metoprolol Tartrate 25 Mg Tablet PO 25 mg BID STEVE Administration Montelukast Sodium 10 mg 07/26/23 21:00 07/28/23 21:40 Montelukast 10 Mg Tablet PO 10 mg QPM STEVE Administration Morphine Sulfate 1 mg 07/25/23 20:55 07/28/23 21:32 Morphine 2 Mg/Ml Carpuject IVP 1 mg Q2HR PRN Administration Pain 8 to 10 Multivitamins/Minerals 1 tab 07/26/23 08:00 07/29/23 08:35 Multivitamin W/Minerals Tablet PO 1 tab DAILYWM STEVE Administration Polyethylene Glycol 17 gm 07/25/23 21:02 07/26/23 10:56 Polyethylene Glycol 3350 17 Gm Packet PO 17 gm DAILY PRN Administration Bowel Protocol Polyethylene Glycol 17 gm 07/27/23 09:00 07/29/23 08:55 Polyethylene Glycol 3350 17 Gm Packet PO Not Given DAILY STEVE Senna 8.6 - 17.2 mg 07/27/23 09:00 07/29/23 08:55 Senna 8.6 Mg Tablet PO Not Given DAILY STEVE Sodium Chloride 10 ml 07/25/23 20:55 07/27/23 16:11 Sodium Chloride Flush 0.9% 10 Ml Syringe IVP 10 ml PRN PRN Administration NEEDED PER PROVIDER ORDERS Sodium Chloride 10 ml 07/26/23 01:00 07/29/23 09:02 Sodium Chloride Flush 0.9% 10 Ml Syringe IVP 10 ml 0100,0900,1700 STEVE Administration Tamsulosin HCl 0.4 mg 07/27/23 12:00 07/29/23 08:35 Tamsulosin 0.4 Mg Capsule PO 0.4 mg DAILY STEVE Administration - Lab Result Fish Bone Diagrams: 07/29/23 04:07 07/29/23 04:35 - Additional Planning My Orders: My Active Orders 07/28/23 12:00 Calcitonin [Fortical] 1 sprays KAILA DAILY 07/29/23 10:50 CUL, URINE [RM] Routine Subjective - Subjective Patient Reports: Other (Continues to have numerous complaints, primary complaint is her back pain. She is also having dark urine. We will obtain a UA. Renal function is stable.) Objective Vital Signs: Vital Signs - 24 hr 07/28/23 07/28/23 07/28/23 20:00 21:34 21:39 Temperature 36.5 C Heart Rate 57 L Heart Rate [ 87 Brachial] Respiratory 18 20 Rate Blood Pressure 114/73 Blood Pressure 114/73 [Left Brachial artery] O2 Saturation 96 07/28/23 07/29/23 23:37 08:35 Temperature 36.3 C L Heart Rate Heart Rate [ 68 Brachial] Respiratory 20 Rate Blood Pressure 137/94 H Blood Pressure 112/68 [Left Brachial artery] O2 Saturation 95 Oxygen O2 Source Room air I&O (Last 24 Hrs): Intake and Output Totals x24h 07/27/23 07/28/23 07/29/23 23:59 23:59 23:59 Intake Total 3216 2600 1795 Output Total 1999 800 350 Balance 1216 1800 1445 General: Alert, Oriented x3, Cooperative, No acute distress Neuro: Alert, CN 2-12 Grossly Intact, Oriented Times 3 Cardiovascular: Regular rate, Normal S1, Normal S2, No murmurs Respiratory: Chest non-tender, No respiratory distress, Breath sounds nml Abdomen: Normal bowel sounds, Soft, No tenderness, No hepatospenomegaly, No masses - Results Results: Laboratory Results WBC 6.0 x10^3/uL (4.8-10.8) 07/29/23 04:07 RBC 3.49 10^6/uL (4.20-5.40) L 07/29/23 04:07 Hgb 11.9 g/dL (12.0-16.0) L 07/29/23 04:07 Hct 35.6 % (37.0-47.0) L 07/29/23 04:07 MCV 102.0 fL (81.0-99.0) H 07/29/23 04:07 MCH 34.1 pg (27.0-31.0) H 07/29/23 04:07 MCHC 33.4 g/dL (32.0-36.0) 07/29/23 04:07 RDW 13.2 % (12.0-15.0) 07/29/23 04:07 Plt Count 214 10^3/uL (130-450) 07/29/23 04:07 MPV 9.6 fL (7.9-10.8) 07/29/23 04:07 Neut # (Auto) 4.1 10^3/uL (1.5-6.6) 07/29/23 04:07 Lymph # (Auto) 0.8 10^3/uL (1.5-3.5) L 07/29/23 04:07 [place] # (Auto) 0.8 10^3/uL (0.0-1.0) 07/29/23 04:07 Eos # (Auto) 0.3 10^3/uL (0.0-0.7) 07/29/23 04:07 Baso # (Auto) 0.1 10^3/uL (0.0-0.1) 07/29/23 04:07 Absolute Nucleated RBC 0.00 x10^3/uL 07/29/23 04:07 Nucleated RBC % 0.0 /100WBC 07/29/23 04:07 Sodium 132 mmol/L (135-145) L 07/29/23 04:35 Potassium 4.3 mmol/L (3.5-4.5) 07/29/23 04:35 Chloride 101 mmol/L (101-111) 07/29/23 04:35 Carbon Dioxide 25 mmol/L (21-32) 07/29/23 04:35 Anion Gap 6.0 (6-13) 07/29/23 04:35 BUN 19 mg/dL (6-20) 07/29/23 04:35 Creatinine 0.8 mg/dL (0.6-1.3) 07/29/23 04:35 Estimated GFR (MDRD) 68 (>89) L 07/29/23 04:35 Glucose 102 mg/dL (74-104) 07/29/23 04:35 Estimat Average Glucose 108 mg/dL (70-100) H 07/25/23 21:15 Hemoglobin A1c % 5.4 % (4.27-6.07) 07/25/23 21:15 Calcium 8.6 mg/dL (8.5-10.3) 07/29/23 04:35 Magnesium 2.0 mg/dL (1.7-2.3) 07/25/23 21:15 Total Bilirubin 0.6 mg/dL (0.2-1.0) 07/26/23 04:50 AST 15 IU/L (10-42) 07/26/23 04:50 ALT 11 IU/L (10-60) 07/26/23 04:50 Alkaline Phosphatase 68 IU/L (42-121) 07/26/23 04:50 Total Protein 5.6 g/dL (6.4-8.9) L 07/26/23 04:50 Albumin 3.3 g/dL (3.2-5.5) 07/26/23 04:50 Globulin 2.3 g/dL (2.1-4.2) 07/26/23 04:50 Albumin/Globulin Ratio 1.4 (1.0-2.2) 07/26/23 04:50 Triglycerides 85 mg/dL (48-352) 07/25/23 21:15 Cholesterol 158 mg/dL (-200) 07/25/23 21:15 LDL Cholesterol, Calc 94 mg/dL (-129) 07/25/23 21:15 VLDL Cholesterol 17 mg/dL 07/25/23 21:15 HDL Cholesterol 47 mg/dL (60-) L 07/25/23 21:15 LDL/HDL Ratio 2.0 (<4.4) 07/25/23 21:15 Cholesterol/HDL Ratio 3.4 (<4.4) 07/25/23 21:15 Lipase < 10 U/L (11-82) L 07/25/23 13:01 TSH 9.76 uIU/mL (0.34-5.60) H 07/25/23 21:15 Urine Color YELLOW 07/29/23 10:50 Urine Clarity CLOUDY (CLEAR) 07/29/23 10:50 Urine pH 6.5 PH (5.0-7.5) 07/29/23 10:50 Ur Specific [place] <=1.005 (1.002-1.030) 07/29/23 10:50 Urine Protein 30 mg/dL (NEGATIVE) H 07/29/23 10:50 Urine Glucose (UA) NEGATIVE mg/dL (NEGATIVE) 07/29/23 10:50 Urine Ketones NEGATIVE mg/dL (NEGATIVE) 07/29/23 10:50 Urine Occult Blood LARGE (NEGATIVE) H 07/29/23 10:50 Urine Nitrite NEGATIVE (NEGATIVE) 07/29/23 10:50 Urine Bilirubin NEGATIVE (NEGATIVE) 07/29/23 10:50 Urine Urobilinogen 1 (NORMAL) E.U./dL (NORMAL) 07/29/23 10:50 Ur Leukocyte Esterase LARGE (NEGATIVE) H 07/29/23 10:50 Urine RBC 6-10 /HPF (0-5) H 07/29/23 10:50 Urine WBC >25 /HPF (0-5) H 07/29/23 10:50 Urine WBC Clumps PRESENT 07/29/23 10:50 Ur Epithelial Cells RARE Renal Tubular /HPF (<= Few) 07/29/23 10:50 Ur Squamous Epith Cells NONE SEEN (<= Few) 07/29/23 10:50 Urine Bacteria Moderate /HPF (None Seen) H 07/29/23 10:50 Ur Microscopic Review INDICATED 07/26/23 05:37 Urine Culture Comments INDICATED 07/29/23 10:50 Sepsis Event Note (H) - Evaluation Current Stage of Sepsis: Ruled out
[2023-07-30 08:04] VITALS: BP 139/96
[2023-07-30] MEDS: levoFLOXacin 750 MG TABLET PO SCH (08:25)
--- NOTE | 2023-07-30 08:39 | DISCHARGE SUMMARY ---
Discharge Summary Admit Date: 08/25/23 Discharge Date: 07/30/23 Discharging Provider: Kris Perez Code Status: Attempt Resuscitation Condition at Discharge: Good Discharge Disposition: 02 Transfer Acute Care Hosp - [facility] History of Present Illness: pt with progressively worsening back pain x 1 wk without any reported trauma. pt states she had come to ER a few days and was diagnosed with muscle sprain/spasm, and discharged with flexeril, but has not had relief. denies any shooting pains or numbness, tingling, leg weakness, or involuntary loss or urine or bowel. no fevers, chills, chest pain, sob. lives an active lifestyle. denies falls. no ams. no confusion. states she is able to stand and bear weight, but it makes her pain much worse. she has had decreased bm and po intake as well. - HOSPITAL COURSE Hospital Course: Patient is an 79-year-old female with a past medical history of paroxysmal atrial fibrillation on Eliquis, COPD, hypothyroidism who presented to the ED due to complaints of 1 week of back pain. A CT abdomen/pelvis was performed which revealed evidence of an L1 vertebral compression body fracture as well as a lar ge amount of stool throughout the colon. The ED did discuss this with a neurosurgeon at an unknown hospital who had recommended a TLSO brace. An MRI was obtained the following day after admission which confirmed the fracture and revealed no spinal cord damage. This was reviewed with neurosurgery at [facility] in [place] who had stated that she would be amenable to a kyphoplasty. Calls were made to hospitals in the surrounding area and she was ultimately accepted to [facility] for a [facility]phoplasty given her intractable pain and inability to ambulate without the help of physical therapy. Of note, a Willis catheter was placed due to acute urinary retention which is believed to be secondary to pain. A UA was obtained which showed evidence of a UTI and she was started on oral levofloxacin. A urine culture is currently pending. She was also given stool softeners and her constipation has since resolved. - ALLERGIES Allergies/Adverse Reactions: Allergies Allergy/AdvReac Type Severity Reaction Status Date / Time No Known Drug Allergies Allergy Verified 07/25/23 12:45 - MEDICATIONS Home Medications: Ambulatory Orders Medication Instructions Recorded Confirmed Apixaban [Eliquis] 2.5 mg PO BID 07/20/23 07/25/23 Bimatoprost 0.01% Ophth Dops 1 drops EACHEYE QPM 07/20/23 07/26/23 [Lumigan 0.01% Ophth Drops] Brimonidine 0.2% Ophth Drops 1 drops OP BID 07/20/23 07/25/23 [Alphagan P 0.2% Ophth Drops] Dorzolamide HCl/Pf [Dorzolamide 2% 1 drops OP TID 07/20/23 07/25/23 Eye Drop] Fluticasone/Salmeterol [Advair Hfa 2 puffs INH QPM 07/20/23 07/26/23 115-21 Mcg Inhaler] Levothyroxine Sodium [Synthroid] 200 mcg PO DAILY 07/20/23 07/25/23 Metoprolol Tartrate [Lopressor] 25 mg PO BID 07/20/23 07/25/23 Montelukast [Singulair] 10 mg PO QPM 07/20/23 07/25/23 - PHYSICAL EXAM AT DISCHARGE General Appearance: positive: Moderate distress Respiratory: positive: Chest non-tender, No respiratory distress, Breath sounds nml Cardiovascular: positive: No murmur, No gallop Extremities: positive: Non-tender, No pedal edema Neurologic/Psychiatric: positive: Oriented x3, CN's nml (2-12) - LABS Result Diagrams: 07/29/23 04:07 07/29/23 04:35 - SEPSIS Current Stage of Sepsis: Ruled out - TIME SPENT Time Spent in Discharge (Minutes): 35
--- NOTE | 2023-07-30 08:39 | Discharge Plan ---
Discharge Plan Problem Reviewed?: Yes Disposition: 02 Transfer [facility] No Smoking: If you smoke, Please STOP! Call for help. Follow-up with: Vale De Oliveira ARNP [Primary Care Provider] -
[2023-07-30 10:20] VITALS: O2SAT 92
== END 2023-07-30 09:30 | disposition short-term general hospital (02) | DRG 543 ==
LOC: ED 12:31 → MS2 20:55 → OBSVTOIN 07-26 15:15
PROVIDERS: ADMIT Student in an Organized Health Care Education/Training Program; ATTEND Family Medicine
DX: M84.68XA Pathological fracture in other disease, other site, initial encounter for fracture (principal); N39.0 Urinary tract infection, site not specified; I48.0 Paroxysmal atrial fibrillation; J44.9 Chronic obstructive pulmonary disease, unspecified; M54.50 Low back pain, unspecified; R11.2 Nausea with vomiting, unspecified; E03.9 Hypothyroidism, unspecified; M85.88 Other specified disorders of bone density and structure, other site; K59.00 Constipation, unspecified; H40.9 Unspecified glaucoma; R33.9 Retention of urine, unspecified; R73.9 Hyperglycemia, unspecified; E87.1 Hypo-osmolality and hyponatremia; Z79.01 Long term (current) use of anticoagulants; Z79.890 Hormone replacement therapy; Z79.899 Other long term (current) drug therapy
CPT/HCPCS: 36415; 51701; 72148; 74177; 80048; 80053; 80061; 81001; 83036; 83690; 83735; 84443; 85025; 87077; 87086; 87181; 94640; 96374; 96376; 97162; 97166; 97530; 97535; 99285; A9270; G0378; J1170; J7120; J7626; Q9967; 81003; 83721

== ENCOUNTER 2023-07-30 09:28 | Outpatient (CLI) | payer MEDICARE, OTHER | END 2023-07-30 23:59 | disposition short-term general hospital (02) | LOC: EMS 09:28 | PROVIDERS: ATTEND Family Medicine | DX: M48.56XA Collapsed vertebra, not elsewhere classified, lumbar region, initial encounter for fracture (principal); N39.0 Urinary tract infection, site not specified; Z74.01 Bed confinement status | CPT/HCPCS: A0425; A0428 ==

== ENCOUNTER 2023-10-23 11:03 | Outpatient (CLI) | payer MEDICARE, OTHER ==
--- NOTE | 2023-10-23 14:55 | XRAY Report ---
PROCEDURE: Lumbar Spine 4V INDICATIONS: CLOSED FRACTURE OF 1ST LUMBAR VERTEBRA TECHNIQUE: 4 views of the lumbar spine were acquired. COMPARISON: 07/26/2023 FINDINGS: Surgical change: Vertebral augmentation at L1. Surgical clips project over the left upper quadrant. Bones: 5 [id number] vertebrae are present. There is normal bony alignment. There are new compre ssion deformities of the L2 and L3 vertebral bodies, without endplate avulsion. Moderate disc height loss at L5-S1. Mild disc height loss at remaining levels. Soft tissues: Overlying bowel gas pattern is normal. No suspicious soft tissue calcifications. IMPRESSION: New compression deformities of L2 and L3 without endplate retropulsion, compared with 07/26/2023. Interval vertebral augmentation of L1. Reviewed by: Nigel Gutierrez MD on 10/23/2023 2:54 PM PDT Approved by: Nigel Gutierrez MD on 10/23/2023 2:54 PM PDT Station ID: [id number]
== END 2023-10-23 11:04 | disposition home or self-care (01) ==
LOC: DI 11:03
PROVIDERS: ATTEND Nurse Practitioner Family
DX: M43.8X6 Other specified deforming dorsopathies, lumbar region (principal)